=== PATIENT | male | born 1930 | race Caucasian/White ===

== ENCOUNTER 2018-08-15 15:54 | Inpatient (IN) | payer OTHER ==
[2018-08-15] MEDS ORDERED: ACETAMINOPHEN 1000 MG/100 ML VIAL (NON FORMULARY) IVPB ONE (16:35)
[2018-08-15] MEDS ORDERED: SODIUM CHLORIDE 1,000 ML IV STA (16:35)
[2018-08-15] MEDS ORDERED: ACETAMINOPHEN INJECTION 100 ML IVPB ONE (16:42)
[2018-08-15] MEDS ORDERED: ONDANSETRON 4 MG/2 ML VIAL IVPUSH ONE (16:44)
--- NOTE | 2018-08-15 16:57 | PDOC ---
Attending Attestation - [facility] HPI: 08/15/18 18:08 The patient is an 87-year-old male with a past medical history significant for HTN, DM (Type 2), GERD, BPH, CAD, s/p left lung resection presents to the emergency department with generalized weakness and abdominal pain. Per granddaughters at the bedside, the patients been having the symptoms for the past 2-3 days, that worsened today. The patient was seen at the doctors office , where the patient became diaphoretic and was sent to the ER for evaluation. The patient has associated symptoms of nausea. The family reports for the past 2 -3 days, the patients been not taking his stool softeners. The patients been on pain medication for the past 2 days secondary to back pain. Denies fever, chills, chest pain shortness of breath. Denies dysuria, hematuria, diarrhea. Allergies: NKA Social history: No tobacco or recreational drug use reported. Occasional alcohol use reported. Surgical history: Right lung resection. PCP: Nick Plascencia MD - Physicial Exam PE: 08/15/18 17:29 GENERAL: The patient is in no acute distress. Awake, alert, and oriented. HEAD: Normal with no signs of trauma. EYES: PERRLA, EOMI, sclera anicteric, conjunctiva clear. ENT: Ears normal, nares patent, oropharynx clear without exudates. Moist mucous membranes. NECK: Normal range of motion, supple without lymphadenopathy, JVD, or masses. LUNGS: Breath sounds equal, clear to auscultation bilaterally. No wheezes, and no crackles. HEART: +Tachycardia, no murmur. Regular rate and rhythm, normal S1 and S2 without murmur, rub or gallop. ABDOMEN: +Upper and epigastric tenderness. Soft, normoactive bowel sounds. No guarding, no rebound. No masses palpable. EXTREMITIES: Normal range of motion, no edema. No clubbing or cyanosis. No erythema, or tenderness. NEUROLOGICAL: Patient is a answering all questions. Cranial nerves II through XII grossly intact. Normal speech. No focal neurological deficits. MUSCULOSKELETAL: Back non-tender to palpation, no CVA tenderness SKIN: Warm, Dry, normal turgor, no rashes or lesions noted. - Medical Decision Making 08/15/18 17:30 Documentation prepared by Lyssa Granger, acting as certified medical transcriptionist for Marietta Lucero MD. <Lyssa Granger - Last Filed: 08/15/18 18:09> - Resident Resident Name: KielgrabielPorter - ED Attending Attestation I have performed the following: I have examined & evaluated the patient, The case was reviewed & discussed with the resident, I agree w/resident's findings & plan, Exceptions are as noted - HPI HPI: - Physicial Exam PE: - Medical Decision Making 08/15/18 16:40 Selected Entries 08/15/18 15:55 Temperature 99.9 F H Pulse Rate 123 H Respiratory 24 H Rate Blood Pressure 100/64 O2 Sat by Pulse 98 Oximetry (%) 08/15/18 16:41 EKG: Sinus tachycardia rate of 124 bpm, LAD, no ST elevation, prominent T waves , poor R wave progression 08/15/18 17:22 Laboratory Tests 08/15/18 17:00 WBC 9.6 Hgb 12.7 Hct 39.1 Plt Count 210 D Neutrophils % 67.9 Lymphocytes % 19.2 08/15/18 17:59 08/15/18 18:00 Laboratory Tests 08/15/18 08/15/18 16:34 17:00 Sodium 138 Potassium 4.4 Chloride 103 Carbon Dioxide 25 BUN 23 H Creatinine 0.8 Random Glucose 77 Total Bilirubin 0.7 AST 41 H ALT 19 Creatine Kinase 70 CK-MB (CK-2) 1.5 Troponin I < 0.02 08/15/18 18:12 Laboratory Tests 08/15/18 16:50 Lactic Acid 1.6 08/15/18 19:25 Laboratory Tests 08/15/18 16:50 Total Amylase 56 Lipase 154 08/15/18 19:48 Laboratory Tests 08/15/18 19:15 Urine Ketones Negative Urine Blood Negative Urine Nitrite Negative Ur Leukocyte Esterase Negative CT findings reviewed Will admit to hospitalist service <Marietta Lucero - Last Filed: 08/15/18 19:49>
[2018-08-15 17:04] LABS: BASO % 0.7 % (0-2.0); HEMATOCRIT 39.1 % (35.4-49); HEMOGLOBIN 12.7 GM/dL (11.7-16.9); LYMPH % 19.2 % (8-40); MCH 25.8 pg (25.7-33.7); MCHC 32.4 g/dl (32.0-35.9); MEAN CELL VOLUME 79.5 fl (80-96); MEAN PLT VOLUME 9.3 fl (7.5-11.1); MONO % 10.2 % (3.8-10.2); NEUT % 67.9 % (42.8-82.8); PLATELET COUNT 210 K/MM3 (134-434); RBC 4.91 M/mm3 (4.00-5.60); RDW 18.8 % (11.9-15.9); WHITE BLOOD COUNT 9.6 K/mm3 (4.0-10.0)
[2018-08-15] MEDS ORDERED: ONDANSETRON 4 MG/2 ML VIAL ONE (17:07)
[2018-08-15 17:26] LABS: VENOUS PC02 49.1 mmHg (38-52); VENOUS PH 7.36 (7.32-7.42); VENOUS PO2 38.4 mmHg (28-48)
--- NOTE | 2018-08-15 17:45 | PDOC ---
History of Present Illness - General Chief Complaint: Weakness Stated Complaint: SICK Time Seen by Provider: 08/15/18 16:34 - History of Present Illness Initial Comments: The patient is a 87M w/ a history of HTN, T2DM, GERD, BPH, and back pain who presents for evaluation of 3d of generalized, cramping/bloating abdominal pain that radiates to his right flank and some to his left flank. He endorses associated nausea. He also reports that while he was in a waiting room earlier he began to feel not well as well as diaphoretic. He denies diarrhea, dysuria, hematuria. Denies fevers/chills, recent illness, chest pain, SOB, or changes in sensation. 08/15/18 17:39 Past History - Past Medical History Allergies/Adverse Reactions: Allergies Allergy/AdvReac Type Severity Reaction Status Date / Time No Known Allergies Allergy Verified 08/15/18 16:25 Home Medications: Ambulatory Orders Aspirin [ASA -] 81 mg PO DAILY 04/01/16 Celecoxib [CeleBREX -] 200 mg PO DAILY PRN 04/01/16 Insulin Glargine,Hum.rec.anlog [Lantus Solostar PEN -] 35 units SQ HS 04/01/16 Metoprolol Succinate [Toprol Xl] 50 mg PO DAILY 04/01/16 Rosuvastatin Calcium [Crestor] 20 mg PO HS 04/01/16 Tamsulosin HCl [Flomax -] 0.4 mg PO BID 04/01/16 Azilsartan Medoxomil [Edarbi] 40 mg PO DAILY 04/02/16 Insulin (LOG) Aspart [NovoLOG -] 10 units SQ TID 04/02/16 Insulin Lispro Protamin/Lispro [Humalog Mix 50-50 Kwikpen] 35 unit SQ AC Ciprofloxacin [Cipro (Restricted To Id)] 500 mg PO Q12H #36 tablet 04/04/16 Hypromellose 0.5% Opth Soln [Artificial Tears] 1 drop OU Q12H PRN #0 drops 04/04 Lactobacillus Acidophilus [Bacid -] 1 each PO DAILY #30 capsule 04/04/16 Miscellaneous Drug Not In Syst [Outpatient Lab Test] 1 each ASDIR #1 misc 11/15 Timolol 0.5% [Timoptic 0.5%] 1 drop OU DAILY drops 04/04/16 Cardiac Disorders: Yes (CAD) CVA: No COPD: No CHF: No Dementia: No Diabetes: Yes GI Disorders: No Disorders: Yes (BPH) HTN: Yes Hypercholesterolemia: Yes Liver Disease: No Seizures: No Thyroid Disease: No - Surgical History Lung Surgery: Yes (S/P LT LUNG RESECTION) - Suicide/Smoking/Psychosocial Hx Smoking History: Never smoked Have you smoked in the past 12 months: No Information on smoking cessation initiated: No Hx Alcohol Use: No Drug/Substance Use Hx: No Substance Use Type: None Review of Systems - Review of Systems Able to Perform ROS?: Yes Comments:: GENERAL/CONSTITUTIONAL: No fever or chills. No weakness HEAD, EYES, EARS, NOSE AND THROAT: No change in vision. No ear pain or discharge. No sore throat CARDIOVASCULAR: No chest pain or shortness of breath RESPIRATORY: Denies cough, hemoptysis GASTROINTESTINAL: per HPI GENITOURINARY: No dysuria, frequency, or change in urination MUSCULOSKELETAL: No joint or muscle swelling or pain SKIN: No rash NEUROLOGIC: No headache, vertigo, loss of consciousness, or change in strength/ sensation ENDOCRINE: No increased thirst. No abnormal weight change HEMATOLOGIC/LYMPHATIC: No anemia, easy bleeding, or history of blood clots ALLERGIC/IMMUNOLOGIC: No hives or skin allergy 08/15/18 17:39 Is the patient limited [place]ian proficient: No *Physical Exam - Vital Signs Last Vital Signs Temp Pulse Resp BP Pulse Ox 99.9 F H 123 H 24 H 100/64 98 08/15/18 15:55 08/15/18 15:55 08/15/18 15:55 08/15/18 15:55 08/15/18 15:55 - Physical Exam Comments: GENERAL: Awake, alert, and fully oriented, in no acute distress HEAD: No signs of trauma, normocephalic, atraumatic EYES: PERRLA, EOMI, sclera anicteric, conjunctiva clear ENT: Hearing grossly normal, nares patent, oropharynx clear without exudates. Moist mucosa LUNGS: No distress, speaks full sentences, clear to auscultation bilaterally HEART: Tachycardia with regular rhythm, normal S1 and S2, no murmurs appreciated , peripheral pulses normal and equal bilaterally ABDOMEN: Soft, generalized TTP with more focalized TTP in the epigatrium and LUQ ; no rebound or guarding; not distended; normoactive bowel sounds; well healed TURP incision EXTREMITIES : Normal inspection, Normal range of motion, no edema. No clubbing or cyanosis NEUROLOGICAL: Cranial nerves II through XII grossly intact. Normal speech, no focal sensorimotor deficits SKIN: Warm, mildly diaphoretic, no rashes/cellulitis or lesions noted 08/15/18 17:39 Moderate Sedation - Procedure Monitoring Vital Signs: Procedure Monitoring Vital Signs Temperature 99.9 F H 08/15/18 15:55 Pulse Rate 123 H 08/15/18 15:55 Respiratory Rate 24 H 08/15/18 15:55 Blood Pressure 100/64 08/15/18 15:55 O2 Sat by Pulse Oximetry (%) 98 08/15/18 15:55 ED Treatment Course - LABORATORY CBC & Chemistry Diagram: 08/16/18 07:00 08/16/18 07:00 - ADDITIONAL ORDERS Additional order review: Laboratory Results 08/15/18 08/15/18 08/15/18 17:00 17:00 16:50 PT with INR Cancelled INR Cancelled PTT (Actin FS) Cancelled VBG pH 7.36 POC VBG pCO2 49.1 D POC VBG pO2 38.4 D Mixed VBG HCO3 26.7 H POC Glucometer Troponin I < 0.02 08/15/18 16:20 PT with INR INR PTT (Actin FS) VBG pH POC VBG pCO2 POC VBG pO2 Mixed VBG HCO3 POC Glucometer 105.12591 Troponin I 08/15/18 08/15/18 17:00 16:20 RBC 4.91 MCV 79.5 L MCHC 32.4 RDW 18.8 H MPV 9.3 Neutrophils % 67.9 Lymphocytes % 19.2 Monocytes % 10.2 Eosinophils % 2.0 Basophils % 0.7 POC Glucometer 105.55798 - RADIOLOGY Radiology Studies Ordered: Category Date Time Status ABDOMEN & PELVIS CT WITH CONTR [CT] Stat CT Scan 08/15/18 16:45 Ordered - Medications Given in the ED: ED Medications Discontinued Medications Generic Name Dose Route Start Last Admin Trade Name Freq PRN Reason Stop Dose Admin Acetaminophen 1,000 mg 08/15/18 16:35 08/15/18 17:02 Ofirmev Injection - IVPB 08/15/18 16:36 1,000 mg ONCE ONE Administration Ondansetron HCl 4 mg 08/15/18 16:44 08/15/18 17:17 Zofran Injection IVPUSH 08/15/18 16:45 4 mg ONCE ONE Administration Medical Decision Making - Medical Decision Making The patient is an 87M w/ a history of HTN and T2DM who presents for evaluation of 3d of abdominal pain, associated nausea, and diaphoresis Ddx: ACS, PNA, infection/sepsis, PUD, not likely but considered pancreatitis, biliary dz, vascular etiology ED Course CMP, CBC, coags, blood cultures, Trop I UA, UCx ECG CXR CT A&P Likely plan for admission 08/15/18 17:48 No leukocytosis No anemia Lytes wnl No JESSE LFTs wnl Trop I neg ECG w/o evidence of acute ischemia pending CT A&P Amylase and Lipase 08/15/18 18:[address] 08/15/18 18:36 CT A&P Impression In comparison to a CT study of 05/05/2016 interval development of findings are noted suggestive of 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 There is also possible contiguous involvement of the gastric body. Development of small right lower lobe pulmonary nodules is seen. I have transferred care of the patient to Dr. Pino and discussed the clinical presentation, work-up and ED course thus far. *DC/Admit/Observation/Transfer Diagnosis at time of Disposition: Abdominal pain Qualifiers: Abdominal location: unspecified location Qualified Code(s): R10.9 - Unspecified abdominal pain - Discharge Dispostion Condition at time of disposition: Good Decision to Admit order: Yes - Referrals - Patient Instructions - Post Discharge Activity
[2018-08-15 17:46] LABS: ALK PHOS 250 U/L (45-117); ANION GAP 10 MMOL/L (8-16); BILIRUBIN,TOTAL 0.7 mg/dL (0.2-1); BLOOD UREA NITROGEN 23 mg/dL (7-18); CALCIUM 8.6 mg/dL (8.5-10.1); CHLORIDE 103 mmol/L (98-107); CO2 25 mmol/L (21-32); CREATININE 0.8 mg/dL (0.55-1.3); GLUCOSE,RANDOM 77 mg/dL (74-106); POTASSIUM 4.4 mmol/L (3.5-5.1); SGOT/AST 41 U/L (15-37); SGPT/ALT 19 U/L (13-61); SODIUM 138 mmol/L (136-145); TOT PROT 7.1 g/dl (6.4-8.2)
[2018-08-15 18:00] LABS: INR 1.13 (0.83-1.09); PROTHROMBIN TIME (PATIENT) 13.3 SEC (9.7-13.0)
[2018-08-15 18:03] LABS: ACTIVATED PTT 31.1 SECONDS (25.2-36.5)
[2018-08-15 18:29] LABS: AMYLASE 56 U/L (25-115); LIPASE 154 U/L (73-393)
--- NOTE | 2018-08-15 19:25 | PDOC ---
*Physical Exam - Vital Signs Last Vital Signs Temp Pulse Resp BP Pulse Ox 99.9 F H 123 H 24 H 100/64 98 08/15/18 15:55 08/15/18 15:55 08/15/18 15:55 08/15/18 15:55 08/15/18 15:55 ED Treatment Course - LABORATORY CBC & Chemistry Diagram: 08/15/18 17:00 08/15/18 16:34 - ADDITIONAL ORDERS Additional order review: Laboratory Results 08/15/18 08/15/18 08/15/18 17:38 17:00 17:00 PT with INR 13.30 H INR 1.13 H PTT (Actin FS) 31.1 VBG pH POC VBG pCO2 POC VBG pO2 Mixed VBG HCO3 Sodium Potassium Chloride Carbon Dioxide Anion Gap BUN Creatinine Creat Clearance w eGFR POC Glucometer Random Glucose Lactic Acid Calcium Total Bilirubin AST ALT Alkaline Phosphatase Creatine Kinase CK-MB (CK-2) Troponin I < 0.02 Total Protein Albumin Total Amylase Lipase Blood Type A POSITIVE Antibody Screen Negative 08/15/18 08/15/18 08/15/18 17:00 16:50 16:50 PT with INR Cancelled INR Cancelled PTT (Actin FS) Cancelled VBG pH POC VBG pCO2 POC VBG pO2 Mixed VBG HCO3 Sodium Potassium Chloride Carbon Dioxide Anion Gap BUN Creatinine Creat Clearance w eGFR POC Glucometer Random Glucose Lactic Acid 1.6 Calcium Total Bilirubin AST ALT Alkaline Phosphatase Creatine Kinase CK-MB (CK-2) Troponin I Total Protein Albumin Total Amylase 56 Lipase 154 Blood Type Antibody Screen 08/15/18 08/15/18 08/15/18 16:50 16:34 16:20 PT with INR INR PTT (Actin FS) VBG pH 7.36 POC VBG pCO2 49.1 D POC VBG pO2 38.4 D Mixed VBG HCO3 26.7 H Sodium 138 Potassium 4.4 Chloride 103 Carbon Dioxide 25 Anion Gap 10 BUN 23 H Creatinine 0.8 Creat Clearance w eGFR > 60 POC Glucometer 105.33180 Random Glucose 77 Lactic Acid Calcium 8.6 Total Bilirubin 0.7 AST 41 H ALT 19 Alkaline Phosphatase 250 H Creatine Kinase 70 CK-MB (CK-2) 1.5 Troponin I Total Protein 7.1 Albumin 3.0 L Total Amylase Lipase Blood Type Antibody Screen 08/15/18 08/15/18 17:00 16:20 RBC 4.91 MCV 79.5 L MCHC 32.4 RDW 18.8 H MPV 9.3 Neutrophils % 67.9 Lymphocytes % 19.2 Monocytes % 10.2 Eosinophils % 2.0 Basophils % 0.7 POC Glucometer 105.75605 - Medications Given in the ED: ED Medications Discontinued Medications Generic Name Dose Route Start Last Admin Trade Name Willian PRN Reason Stop Dose Admin Acetaminophen 1,000 mg 08/15/18 16:35 08/15/18 17:02 Ofirmev Injection - IVPB 08/15/18 16:36 1,000 mg ONCE ONE Administration Ondansetron HCl 4 mg 08/15/18 16:44 08/15/18 17:17 Zofran Injection IVPUSH 08/15/18 16:45 4 mg ONCE ONE Administration Medical Decision Making - Medical Decision Making 08/15/18 19:[address] Landaverde. 87 year old male presented with diaphoresis and tachycardia. Patient reported generalized abdominal fullness for the past 3 days. Rule out ACS, repeat trop at 8pm Awaiting abdominal CT read Pending urinalysis Will admit to hospitalist. *DC/Admit/Observation/Transfer Diagnosis at time of Disposition: Abdominal pain Qualifiers: Abdominal location: unspecified location Qualified Code(s): R10.9 - Unspecified abdominal pain - Discharge Dispostion Condition at time of disposition: Good - Referrals Referrals: Nick Nur MD [Primary Care Provider] - - Patient Instructions - Post Discharge Activity
[2018-08-15 19:29] LABS: URINE APPEARANCE CLEAR; URINE BILIRUBIN NEGATIVE (<2.0 mg/dL); URINE COLOR YELLOW; URINE GLUCOSE (UA) NEGATIVE (NEGATIVE); URINE KETONE NEGATIVE (NEGATIVE); URINE LEUK ESTERASE NEGATIVE (NEGATIVE); URINE NITRITE NEGATIVE (NEGATIVE); URINE PROTEIN NEGATIVE (NEGATIVE); URINE UROBILINOGEN 4.0 E.U/dl mg/dL (0.2-1.0)
[2018-08-15] MEDS: SODIUM CHLORIDE 1,000 ML IV SCH (22:51)
--- NOTE | 2018-08-15 23:21 | HP ---
Admitting History and Physical - Admission Chief Complaint: Fever and chills History of Present Illness: this an 87 y/o male patient with hx of HTN, DL, pancreatic cancer and DM presented to the hospital with cold sweats, patient stated that he had no fever or chills, denied any chest pain or discomfort, no palpitations. History Source: Patient Limitations to Obtaining History: No Limitations - Past Medical History Heme/Onc: Yes: Other (pancreatic cancer with mets) - Smoking History Smoking history: Never smoked Have you smoked in the past 12 months: No - Alcohol/Substance Use Hx Alcohol Use: No Home Medications - Allergies Allergies/Adverse Reactions: Allergies Allergy/AdvReac Type Severity Reaction Status Date / Time No Known Allergies Allergy Verified 08/15/18 16:25 - Home Medications Home Medications: Ambulatory Orders Aspirin [ASA -] 81 mg PO DAILY 04/01/16 Celecoxib [CeleBREX -] 200 mg PO DAILY PRN 04/01/16 Insulin Glargine,Hum.rec.anlog [Lantus Solostar PEN -] 35 units SQ HS 04/01/16 Metoprolol Succinate [Toprol Xl] 50 mg PO DAILY 04/01/16 Rosuvastatin Calcium [Crestor] 20 mg PO HS 04/01/16 Tamsulosin HCl [Flomax -] 0.4 mg PO BID 04/01/16 Azilsartan Medoxomil [Edarbi] 40 mg PO DAILY 04/02/16 Insulin (LOG) Aspart [NovoLOG -] 10 units SQ TID 04/02/16 Insulin Lispro Protamin/Lispro [Humalog Mix 50-50 Kwikpen] 35 unit SQ AC Ciprofloxacin [Cipro (Restricted To Id)] 500 mg PO Q12H #36 tablet 04/04/16 Hypromellose 0.5% Opth Soln [Artificial Tears] 1 drop OU Q12H PRN #0 drops 04/04 Lactobacillus Acidophilus [Bacid -] 1 each PO DAILY #30 capsule 04/04/16 Miscellaneous Drug Not In Syst [Outpatient Lab Test] 1 each ASDIR #1 misc 11/15 Timolol 0.5% [Timoptic 0.5%] 1 drop OU DAILY drops 04/04/16 Review of Systems - Review of Systems Constitutional: reports: Diaphoresis, Loss of Appetite, Unintentional Wgt. Loss , Weakness Eyes: reports: No Symptoms HENT: reports: No Symptoms Neck: reports: No Symptoms Cardiovascular: reports: No Symptoms Respiratory: reports: No Symptoms Gastrointestinal: reports: No Symptoms Genitourinary: reports: Burning, Dysuria, Frequency Musculoskeletal: reports: No Symptoms Integumentary: reports: No Symptoms Physical Examination Vital Signs: Vital Signs Temperature 98.9 F 08/15/18 22:12 Pulse Rate 108 H 08/15/18 22:12 Respiratory Rate 18 08/15/18 22:12 Blood Pressure 104/55 L 08/15/18 22:12 O2 Sat by Pulse Oximetry (%) 96 08/15/18 22:12 Constitutional: Yes: Well Nourished, No Distress, Diaphoresis Eyes: Yes: WNL HENT: Yes: WNL Neck: Yes: WNL, Supple, Trachea Midline Cardiovascular: Yes: WNL, Regular Rate and Rhythm, S1, S2 Respiratory: Yes: WNL, Regular, CTA Bilaterally Gastrointestinal: Yes: WNL, Normal Bowel Sounds, Soft ...Rectal Exam: Yes: Deferred Musculoskeletal: Yes: WNL Labs: CBC, BMP 08/15/18 17:00 08/15/18 16:34 Imaging - Results Chest X-ray: Report Reviewed, Image Reviewed Cat Scan: Report Reviewed, Image Reviewed Problem List - Problems (1) BPH (benign prostatic hypertrophy) with urinary retention Assessment/Plan: c/w flomax Code(s): N40.1 - BENIGN PROSTATIC HYPERPLASIA WITH LOWER URINARY TRACT SYMP; R33.8 - OTHER RETENTION OF URINE (2) DM2 (diabetes mellitus, type 2) Assessment/Plan: c/w glargine c/w short acting insulin Code(s): E11.9 - TYPE 2 DIABETES MELLITUS WITHOUT COMPLICATIONS Qualifiers: 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
[2018-08-16] MEDS: INSULIN SLIDING SCALE (NOVOLOG) 1 VIAL SQ SCH ×4 (06:40→22:31)
[2018-08-16 07:47] LABS: BASO % 0.6 % (0-2.0); EOS % 2.4 % (0-4.5); HEMATOCRIT 35.6 % (35.4-49); HEMOGLOBIN 10.9 GM/dL (11.7-16.9); MCH 24.6 pg (25.7-33.7); MCHC 30.5 g/dl (32.0-35.9); MEAN CELL VOLUME 80.6 fl (80-96); MEAN PLT VOLUME 9.2 fl (7.5-11.1); MONO % 9.6 % (3.8-10.2); NEUT % 68.4 % (42.8-82.8); PLATELET COUNT 187 K/MM3 (134-434); RBC 4.41 M/mm3 (4.00-5.60); RDW 18.8 % (11.9-15.9); WHITE BLOOD COUNT 8.9 K/mm3 (4.0-10.0)
[2018-08-16] MEDS: TAMSULOSIN HCL 0.4 MG CAP PO SCH ×2 (08:00→22:26)
[2018-08-16 08:20] LABS: ALBUMIN 2.4 g/dl (3.4-5.0); ALK PHOS 207 U/L (45-117); ANION GAP 8 MMOL/L (8-16); BILIRUBIN,TOTAL 0.7 mg/dL (0.2-1); BLOOD UREA NITROGEN 17 mg/dL (7-18); CALCIUM 7.9 mg/dL (8.5-10.1); CHLORIDE 102 mmol/L (98-107); CO2 27 mmol/L (21-32); CREATININE 0.7 mg/dL (0.55-1.3); GLUCOSE,RANDOM 124 mg/dL (74-106); PHOSPHOROUS 3.8 mg/dL (2.5-4.9); POTASSIUM 4.4 mmol/L (3.5-5.1); SGOT/AST 38 U/L (15-37); SGPT/ALT 15 U/L (13-61); SODIUM 137 mmol/L (136-145); TOT PROT 5.9 g/dl (6.4-8.2)
[2018-08-16] MEDS ORDERED: AZILSARTAN MEDOXOMIL 40 MG PO SCH (10:00)
[2018-08-16] MEDS ORDERED: ENOXAPARIN NA (PORCINE) 40 MG/0.4 ML DISP.SYRIN SQ SCH (10:00)
[2018-08-16] MEDS ORDERED: PT OWN MED DRAWER 7, Y5N ONE (10:43)
[2018-08-16] MEDS: ASPIRIN 81 MG CHEWABLE TABLETS PO SCH (11:29)
[2018-08-16] MEDS: TIMOLOL 0.5% OPHTHALMIC SOL 5 ML BOTTLE OU SCH (11:30)
[2018-08-16] MEDS: SODIUM CHLORIDE 1,000 ML IV SCH ×2 (12:33→22:45)
--- NOTE | 2018-08-16 14:50 | PN ---
Progress Note (short form) - Note Progress Note: 87 year old male with HTN, DM 2, BPH, presented with increasing fatigue, abdominal distension, epigastric fullness, palpitations and sweats. 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 Feeling slightly better but still complains of non-specific abdominal discomfort and early satiety. No fever/chills/nausea/vomiting. No weight loss. No melena/hematochezia. PHYSICAL EXAMINATION Afebrile, Hemodynamically stable. Last Vital Signs Temp Pulse Resp BP Pulse Ox 98 F 106 H 20 143/78 96 08/16/18 08:00 08/16/18 11:39 08/16/18 08:00 08/16/18 11:39 08/15/18 22:12 HEENT - Atraumatic, Normocephalic. No pharyngeal erythema/exudate Heart - S1, S2, RRR Lungs - clear to auscultation - no crackles or wheeze. Abdomen - mild distension - mild R and L lower quadrant tenderness. No guarding or rebound. Bowel Sounds normal. Extremities - no calf tenderness Neuro - AAO x 3. Tone/Power normal all 4 extremities. INVESTIGATIONS Laboratory Results - last 24 hr 08/15/18 08/15/18 08/15/18 16:20 16:34 16:50 WBC RBC Hgb Hct MCV MCH MCHC RDW Plt Count MPV Absolute Neuts (auto) Neutrophils % Lymphocytes % Monocytes % Eosinophils % Basophils % Nucleated RBC % PT with INR INR PTT (Actin FS) D-Dimer VBG pH 7.36 POC VBG pCO2 49.1 D POC VBG pO2 38.4 D Mixed VBG HCO3 26.7 H Sodium 138 Potassium 4.4 Chloride 103 Carbon Dioxide 25 Anion Gap 10 BUN 23 H Creatinine 0.8 Creat Clearance w eGFR > 60 POC Glucometer 105.63138 Random Glucose 77 Lactic Acid Calcium 8.6 Phosphorus Magnesium Total Bilirubin 0.7 AST 41 H ALT 19 Alkaline Phosphatase 250 H Creatine Kinase 70 CK-MB (CK-2) 1.5 Troponin I Total Protein 7.1 Albumin 3.0 L Total Amylase Lipase Urine Color Urine Appearance Urine pH Ur Specific [place] Urine Protein Urine Glucose (UA) Urine Ketones Urine Blood Urine Nitrite Urine Bilirubin Urine Urobilinogen Ur Leukocyte Esterase Blood Type Antibody Screen 12/14/18 12/14/18 12/14/18 16:50 16:50 17:00 WBC 9.6 RBC 4.91 Hgb 12.7 Hct 39.1 MCV 79.5 L MCH 25.8 MCHC 32.4 RDW 18.8 H Plt Count 210 D MPV 9.3 Absolute Neuts (auto) 6.5 Neutrophils % 67.9 Lymphocytes % 19.2 Monocytes % 10.2 Eosinophils % 2.0 Basophils % 0.7 Nucleated RBC % 0 PT with INR INR PTT (Actin FS) D-Dimer VBG pH POC VBG pCO2 POC VBG pO2 Mixed VBG HCO3 Sodium Potassium Chloride Carbon Dioxide Anion Gap BUN Creatinine Creat Clearance w eGFR POC Glucometer Random Glucose Lactic Acid 1.6 Calcium Phosphorus Magnesium Total Bilirubin AST ALT Alkaline Phosphatase Creatine Kinase CK-MB (CK-2) Troponin I Total Protein Albumin Total Amylase 56 Lipase 154 Urine Color Urine Appearance Urine pH Ur Specific [place] Urine Protein Urine Glucose (UA) Urine Ketones Urine Blood Urine Nitrite Urine Bilirubin Urine Urobilinogen Ur Leukocyte Esterase Blood Type Antibody Screen 08/15/18 08/15/18 08/15/18 17:00 17:00 17:00 WBC RBC Hgb Hct MCV MCH MCHC RDW Plt Count MPV Absolute Neuts (auto) Neutrophils % Lymphocytes % Monocytes % Eosinophils % Basophils % Nucleated RBC % PT with INR Cancelled INR Cancelled PTT (Actin FS) Cancelled D-Dimer VBG pH POC VBG pCO2 POC VBG pO2 Mixed VBG HCO3 Sodium Potassium Chloride Carbon Dioxide Anion Gap BUN Creatinine Creat Clearance w eGFR POC Glucometer Random Glucose Lactic Acid Calcium Phosphorus Magnesium Total Bilirubin AST ALT Alkaline Phosphatase Creatine Kinase CK-MB (CK-2) Troponin I < 0.02 Total Protein Albumin Total Amylase Lipase Urine Color Urine Appearance Urine pH Ur Specific [place] Urine Protein Urine Glucose (UA) Urine Ketones Urine Blood Urine Nitrite Urine Bilirubin Urine Urobilinogen Ur Leukocyte Esterase Blood Type A POSITIVE Antibody Screen Negative 08/15/18 08/15/18 08/15/18 17:38 17:38 19:15 WBC RBC Hgb Hct MCV MCH MCHC RDW Plt Count MPV Absolute Neuts (auto) Neutrophils % Lymphocytes % Monocytes % Eosinophils % Basophils % Nucleated RBC % PT with INR 13.30 H INR 1.13 H PTT (Actin FS) 31.1 D-Dimer 2681 H VBG pH POC VBG pCO2 POC VBG pO2 Mixed VBG HCO3 Sodium Potassium Chloride Carbon Dioxide Anion Gap BUN Creatinine Creat Clearance w eGFR POC Glucometer Random Glucose Lactic Acid Calcium Phosphorus Magnesium Total Bilirubin AST ALT Alkaline Phosphatase Creatine Kinase CK-MB (CK-2) Troponin I Total Protein Albumin Total Amylase Lipase Urine Color Yellow Urine Appearance Clear Urine pH 5.0 Ur Specific [place] 1.020 Urine Protein Negative Urine Glucose (UA) Negative Urine Ketones Negative Urine Blood Negative Urine Nitrite Negative Urine Bilirubin Negative Urine Urobilinogen 4.0 e.u/dl Ur Leukocyte Esterase Negative Blood Type Antibody Screen 08/15/18 08/16/18 08/16/18 22:02 07:00 07:00 WBC 8.9 RBC 4.41 Hgb 10.9 L Hct 35.6 MCV 80.6 MCH 24.6 L MCHC 30.5 L RDW 18.8 H Plt Count 187 MPV 9.2 Absolute Neuts (auto) 6.1 Neutrophils % 68.4 Lymphocytes % 19.0 Monocytes % 9.6 Eosinophils % 2.4 Basophils % 0.6 Nucleated RBC % 0 PT with INR INR PTT (Actin FS) D-Dimer VBG pH POC VBG pCO2 POC VBG pO2 Mixed VBG HCO3 Sodium 137 Potassium 4.4 Chloride 102 Carbon Dioxide 27 Anion Gap 8 BUN 17 Creatinine 0.7 Creat Clearance w eGFR > 60 POC Glucometer Random Glucose 124 H Lactic Acid Calcium 7.9 L Phosphorus 3.8 Magnesium 2.0 Total Bilirubin 0.7 AST 38 H ALT 15 Alkaline Phosphatase 207 H Creatine Kinase CK-MB (CK-2) Troponin I < 0.02 Total Protein 5.9 L Albumin 2.4 L Total Amylase Lipase Urine Color Urine Appearance Urine pH Ur Specific [place] Urine Protein Urine Glucose (UA) Urine Ketones Urine Blood Urine Nitrite Urine Bilirubin Urine Urobilinogen Ur Leukocyte Esterase Blood Type Antibody Screen CT A/P - Pancreatic Mass with likely Liver Mets. Pulmonary Nodules. Possible contiguous involvement of the gastric body. CXR - basal atelectasis Assessment/Plan 87 year old male with HTN, DM 2, BPH, presented with increasing fatigue, abdominal distension, epigastric fullness, palpitations and sweats. 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 1. Pancreatic Mass - likely Ca with mets to Liver No clear evidence of pancreatic or biliary obstruction on imaging/chemistry although there is some pancreatic duct dilatation on CT A/P. CEA, CA 19/9 pending. Will consult Hematology/Oncology and GI for recommendations regarding further work up including possible EGD/EUS/Bx. Patient is currently FULL CODE and wants full work up. Once a final tissue diagnosis has been made, he will reconsider treatment options and code status at that time. 2. HTN - Normally on Azilsartan and Metoprolol. Metoprolol continued. 3. DM 2 - Continue Glargine/Lispro SS. 4. Anemia - likely secondary to chronic disease/metastatic malignancy. No evidence of active bleeding. Stool occult blood requested. Will monitor H/H 5. HLD -continue Rosuvastatin. 6. BPH - Continue Tamsulosin DVT Px - Heparin SQ GI Px - Protonix Home Medications Medication Instructions Recorded Aspirin [ASA -] 81 mg PO DAILY 04/01/16 Celecoxib [CeleBREX -] 200 mg PO DAILY PRN 04/01/16 Insulin Glargine,Hum.rec.anlog 35 units SQ HS 04/01/16 [Lantus Solostar PEN -] Metoprolol Succinate [Toprol Xl] 50 mg PO DAILY 04/01/16 Rosuvastatin Calcium [Crestor] 20 mg PO HS 04/01/16 Tamsulosin HCl [Flomax -] 0.4 mg PO BID 04/01/16 Azilsartan Medoxomil [Edarbi] 40 mg PO DAILY 04/02/16 Insulin (LOG) Aspart [NovoLOG -] 10 units SQ TID 04/02/16 Insulin Lispro Protamin/Lispro 35 unit SQ AC 04/02/16 [Humalog Mix 50-50 Kwikpen] Ciprofloxacin [Cipro (Restricted 500 mg PO Q12H #36 tablet 04/04/16 To Id)] Hypromellose 0.5% Opth Soln 1 drop OU Q12H PRN #0 drops 04/04/16 [Artificial Tears] Lactobacillus Acidophilus [Bacid -] 1 each PO DAILY #30 capsule 04/04/16 Miscellaneous Drug Not In Syst 1 each ASDIR #1 misc 04/04/16 [Outpatient Lab Test] Timolol 0.5% [Timoptic 0.5%] 1 drop OU DAILY drops 04/04/16 Visit type - Emergency Visit Emergency Visit: Yes ED Registration Date: 08/15/18 Care time: The patient presented to the Emergency Department on the above date and was hospitalized for further evaluation of their emergent condition. - New Patient This patient is new to me today: Yes Date on this admission: 08/16/18 - Critical Care Critical Care patient: No - Discharge Referral Referred to [facility] No
[2018-08-16] MEDS ORDERED: DOCUSATE SODIUM 100 MG CAPSULE (FP) PO PRN (17:44)
[2018-08-16] MEDS ORDERED: POLYETHYLENE GLYCOL 3350 119 GM BTL PO PRN (17:45)
[2018-08-16] MEDS ORDERED: BISACODYL 10 MG SUPP.RECT PR PRN (17:46)
[2018-08-16] MEDS: HEPARIN NA (PORCINE) 5,000 UNITS/ML 1ML VIAL SQ SCH (22:26)
[2018-08-16] MEDS: ROSUVASTATIN CA 20 MG TABLET (FP) PO SCH (22:26)
[2018-08-16] MEDS: INSULIN (LEVEMIR) 100 UNITS/ML UNITS SQ SCH (22:30)
--- NOTE | 2018-08-16 23:28 | CON.GI ---
Consult - Alcohol/Substance Use Hx Alcohol Use: No - Smoking History Smoking history: Never smoked Have you smoked in the past 12 months: No Home Medications - Allergies Allergies/Adverse Reactions: Allergies Allergy/AdvReac Type Severity Reaction Status Date / Time No Known Allergies Allergy Verified 08/15/18 16:25 - Home Medications Home Medications: Ambulatory Orders Aspirin [ASA -] 81 mg PO DAILY 04/01/16 Celecoxib [CeleBREX -] 200 mg PO DAILY PRN 04/01/16 Insulin Glargine,Hum.rec.anlog [Lantus Solostar PEN -] 35 units SQ HS 04/01/16 Metoprolol Succinate [Toprol Xl] 50 mg PO DAILY 04/01/16 Rosuvastatin Calcium [Crestor] 20 mg PO HS 04/01/16 Tamsulosin HCl [Flomax -] 0.4 mg PO BID 04/01/16 Azilsartan Medoxomil [Edarbi] 40 mg PO DAILY 04/02/16 Insulin (LOG) Aspart [NovoLOG -] 10 units SQ TID 04/02/16 Insulin Lispro Protamin/Lispro [Humalog Mix 50-50 Kwikpen] 35 unit SQ AC Ciprofloxacin [Cipro (Restricted To Id)] 500 mg PO Q12H #36 tablet 04/04/16 Hypromellose 0.5% Opth Soln [Artificial Tears] 1 drop OU Q12H PRN #0 drops 04/04 Lactobacillus Acidophilus [Bacid -] 1 each PO DAILY #30 capsule 04/04/16 Miscellaneous Drug Not In Syst [Outpatient Lab Test] 1 each ASDIR #1 misc 11/15 Timolol 0.5% [Timoptic 0.5%] 1 drop OU DAILY drops 04/04/16 Physical Exam-GI Vital Signs: Vital Signs Temperature 97.0 F L 08/16/18 18:00 Pulse Rate 98 H 08/16/18 18:00 Respiratory Rate 20 08/16/18 18:00 Blood Pressure 149/82 08/16/18 18:00 O2 Sat by Pulse Oximetry (%) 96 08/16/18 09:00 Labs: CBC, BMP 08/16/18 07:00 08/16/18 07:00 INR, PTT INR 1.13 (0.83-1.09) H 08/15/18 17:38
--- NOTE | 2018-08-16 23:33 | CON.GI ---
Consult Consult Specialty:: GI Referred by:: Hospitalist Service Reason for Consultation:: Pancreatic cancer and metastatic liver disease - History of Present Illness Chief Complaint: abdominal pain, back pain History of Present Illness: 87M admitted for evaluation of abdominal pain and lower back pain. He also describes having constipation for 5 days. he believes that he had a colonoscopy with Dr. whipple but does not recall when. CT scan on admission revealed findings consistent with primary pancreatic ca involving liver as well as gastric body. He denies vomiting. He does describe "belching and gas". - History Source History Provided By: Patient, Medical Record - Past Medical History Cardio/Vascular: Yes: CAD, HTN Renal/: Yes: BPH Endocrine: Yes: Diabetes Mellitus (DM II) - Past Surgical History Additional Surgical History: Resection of right lung mass - Alcohol/Substance Use Hx Alcohol Use: No History of Substance Use: reports: None - Smoking History Smoking history: Never smoked Have you smoked in the past 12 months: No - Social History Usual Living Arrangement: Other (Lives with family) ADL: Independent History of Recent Travel: No Home Medications - Allergies Allergies/Adverse Reactions: Allergies Allergy/AdvReac Type Severity Reaction Status Date / Time No Known Allergies Allergy Verified 08/15/18 16:25 - Home Medications Home Medications: Ambulatory Orders Aspirin [ASA -] 81 mg PO DAILY 04/01/16 Celecoxib [CeleBREX -] 200 mg PO DAILY PRN 04/01/16 Insulin Glargine,Hum.rec.anlog [Lantus Solostar PEN -] 35 units SQ HS 04/01/16 Metoprolol Succinate [Toprol Xl] 50 mg PO DAILY 04/01/16 Rosuvastatin Calcium [Crestor] 20 mg PO HS 04/01/16 Tamsulosin HCl [Flomax -] 0.4 mg PO BID 04/01/16 Azilsartan Medoxomil [Edarbi] 40 mg PO DAILY 04/02/16 Insulin (LOG) Aspart [NovoLOG -] 10 units SQ TID 04/02/16 Insulin Lispro Protamin/Lispro [Humalog Mix 50-50 Kwikpen] 35 unit SQ AC Ciprofloxacin [Cipro (Restricted To Id)] 500 mg PO Q12H #36 tablet 04/04/16 Hypromellose 0.5% Opth Soln [Artificial Tears] 1 drop OU Q12H PRN #0 drops 04/04 Lactobacillus Acidophilus [Bacid -] 1 each PO DAILY #30 capsule 04/04/16 Miscellaneous Drug Not In Syst [Outpatient Lab Test] 1 each ASDIR #1 misc 11/15 Timolol 0.5% [Timoptic 0.5%] 1 drop OU DAILY drops 04/04/16 Family Disease History - Family Disease History Other Family History: No history of colon cancer, pancreatic cancer Review of Systems - Review of Systems Constitutional: denies: Chills, Loss of Appetite Gastrointestinal: reports: Abdominal Pain, Constipation. denies: Bloating, Diarrhea, Melena, Nausea, Rectal Bleeding, Vomiting Physical Exam-GI Vital Signs: Vital Signs Temperature 97.0 F L 08/16/18 18:00 Pulse Rate 98 H 08/16/18 18:00 Respiratory Rate 20 08/16/18 18:00 Blood Pressure 149/82 08/16/18 18:00 O2 Sat by Pulse Oximetry (%) 96 08/16/18 09:00 Constitutional: Yes: Calm Eyes: No: Sclera Icterus Cardiovascular: Yes: Regular Rate and Rhythm Respiratory: No: CTA Bilaterally Gastrointestinal Inspection: No: Distention, Scars ...Auscultate: Yes: Normoactive Bowel Sounds ...Palpate: No: Hepatomegaly, Splenomegaly, Tenderness ...Percussion: No: Tympanitic ...Rectal Exam: Yes: Other (No external lesions, no masses, 2+ prostate, stool guaiac negative) Edema: No (No LE edema) Neurological: Yes: Alert Labs: CBC, BMP 08/16/18 07:00 08/16/18 07:00 INR, PTT INR 1.13 (0.83-1.09) H 08/15/18 17:38 Hepatic Panel Total Bilirubin 0.7 mg/dL (0.2-1) 08/16/18 07:00 AST 38 U/L (15-37) H 08/16/18 07:00 ALT 15 U/L (13-61) 08/16/18 07:00 Alkaline Phosphatase 207 U/L (45-117) H 08/16/18 07:00 Albumin 2.4 g/dl (3.4-5.0) L 08/16/18 07:00 Imaging - Results Cat Scan: Report Reviewed, Image Reviewed Problem List - Problems (1) Metastatic cancer Assessment/Plan: Suspected pancreatic cancer primary with mets to liver and local extension Advise: Onc evaluation Will likely need liver biopsy. would stop asa in setting of possible biopsy Code(s): C79.9 - SECONDARY MALIGNANT NEOPLASM OF UNSPECIFIED SITE
[2018-08-17] MEDS: INSULIN SLIDING SCALE (NOVOLOG) 1 VIAL SQ SCH ×4 (06:08→22:22)
[2018-08-17] MEDS: HEPARIN NA (PORCINE) 5,000 UNITS/ML 1ML VIAL SQ SCH ×3 (06:08→22:22)
[2018-08-17 06:52] LABS: HEMATOCRIT 36.3 % (35.4-49); MCH 24.3 pg (25.7-33.7); MCHC 30.4 g/dl (32.0-35.9); PLATELET COUNT 197 K/MM3 (134-434); RBC 4.53 M/mm3 (4.00-5.60); RDW 18.6 % (11.9-15.9); WHITE BLOOD COUNT 8.5 K/mm3 (4.0-10.0)
[2018-08-17] MEDS ORDERED: PT OWN MED DRAWER 7, Y5N ONE ×2 (09:13→12:14)
[2018-08-17] MEDS: PANTOPRAZOLE 40 MG TABLET (FP) PO SCH (09:29)
[2018-08-17] MEDS: TAMSULOSIN HCL 0.4 MG CAP PO SCH ×2 (09:29→22:22)
[2018-08-17] MEDS: POLYETHYLENE GLYCOL 3350 119 GM BTL PO SCH (09:30)
[2018-08-17] MEDS: TIMOLOL 0.5% OPHTHALMIC SOL 5 ML BOTTLE OU SCH (10:16)
--- NOTE | 2018-08-17 12:27 | EKG ---
Test Reason : Blood Pressure : / mmHG Vent. 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
--- NOTE | 2018-08-17 13:04 | CONSULT ---
Consult Consult Specialty:: Oncology Referred by:: Medicine Reason for Consultation:: Newly diagnosed pancreatic mass, with liver lesions, suggestive of pancreatic carcinoma - History of Present Illness Chief Complaint: Referred to ER Saturday from PCPs office following episode of diaphoresis, noted on CT andomen to have pancreatic and liver lesions History of Present Illness: On questioning reports some loss of weight past several months. Also reports back pain 1 month - underwent MRI a few days ago that apparently noted a spinal lesion (as per family) - report not available for review. Otherwise non-specific GI symptoms - bloating, intermittent abdominal pain, ' gasiness'. Currently comfortable. - History Source History Provided By: Patient, Family Member Limitations to Obtaining History: No Limitations - Past Medical History Cardio/Vascular: Yes: CAD, HTN Renal/: Yes: BPH Endocrine: Yes: Diabetes Mellitus (DM II) - Past Surgical History Additional Surgical History: Resection of right lung mass - Alcohol/Substance Use Hx Alcohol Use: No History of Substance Use: reports: None - Smoking History Smoking history: Never smoked Have you smoked in the past 12 months: No - Social History Usual Living Arrangement: Other (Lives with family) ADL: Independent History of Recent Travel: No Home Medications - Allergies Allergies/Adverse Reactions: Allergies Allergy/AdvReac Type Severity Reaction Status Date / Time No Known Allergies Allergy Verified 08/15/18 16:25 - Home Medications Home Medications: Ambulatory Orders Aspirin [ASA -] 81 mg PO DAILY 04/01/16 Celecoxib [CeleBREX -] 200 mg PO DAILY PRN 04/01/16 Insulin Glargine,Hum.rec.anlog [Lantus Solostar PEN -] 35 units SQ HS 04/01/16 Metoprolol Succinate [Toprol Xl] 50 mg PO DAILY 04/01/16 Rosuvastatin Calcium [Crestor] 20 mg PO HS 04/01/16 Tamsulosin HCl [Flomax -] 0.4 mg PO BID 04/01/16 Azilsartan Medoxomil [Edarbi] 40 mg PO DAILY 04/02/16 Insulin (LOG) Aspart [NovoLOG -] 10 units SQ TID 04/02/16 Insulin Lispro Protamin/Lispro [Humalog Mix 50-50 Kwikpen] 35 unit SQ AC Ciprofloxacin [Cipro (Restricted To Id)] 500 mg PO Q12H #36 tablet 04/04/16 Hypromellose 0.5% Opth Soln [Artificial Tears] 1 drop OU Q12H PRN #0 drops 04/04 Lactobacillus Acidophilus [Bacid -] 1 each PO DAILY #30 capsule 04/04/16 Miscellaneous Drug Not In Syst [Outpatient Lab Test] 1 each ASDIR #1 misc 11/15 Timolol 0.5% [Timoptic 0.5%] 1 drop OU DAILY drops 04/04/16 Family Disease History - Family Disease History Other Family History: No history of colon cancer, pancreatic cancer Review of Systems - Review of Systems Constitutional: reports: Diaphoresis, Unintentional Wgt. Loss Eyes: reports: No Symptoms HENT: reports: No Symptoms, Difficult Swallowing Cardiovascular: denies: Chest Pain, Edema, Shortness of Breath Respiratory: denies: Cough, SOB Gastrointestinal: reports: Abdominal Pain, Bloating. denies: Vomiting Musculoskeletal: reports: Back Pain Neurological: reports: No Symptoms Physical Exam Vital Signs: Vital Signs Temperature 97.8 F 08/17/18 09:28 Pulse Rate 103 H 08/17/18 09:28 Respiratory Rate 19 08/17/18 09:28 Blood Pressure 140/56 L 08/17/18 09:28 O2 Sat by Pulse Oximetry (%) 96 08/16/18 21:00 Constitutional: Yes: Well Nourished, Calm Eyes: Yes: WNL HENT: Yes: WNL Neck: Yes: Supple. No: Lymphadenopathy Cardiovascular: Yes: WNL Respiratory: Yes: CTA Bilaterally Gastrointestinal: Yes: Normal Bowel Sounds. No: Ascites, Distention, Hepatomegaly, Palpable Mass, Splenomegaly, Tenderness, Rebound Musculoskeletal: No: Joint Swelling Integumentary: No: Rash Neurological: Yes: Alert, Oriented, Cran Nerves II-XII Intact. No: Weakness ...Motor Strength: WNL Labs: CBC, BMP 08/17/18 06:00 08/16/18 07:00 Imaging - Results Cat Scan: Report Reviewed Assessment/Plan Newly diagnosed metastatic pancreatic neoplasm, likely adenocarcinoma, with liver metastases. Possible spinal mets also - awaiting outside MRI report. In light of age unlikely that patient would benefit from aggressive chemotherapy , but certainly may be beneficial palliative interventions. Discussed with patient's family the utility of confirming diagnosis with biopsy. On the balance , in light of the ease with which tissue can be obtained - very accessible large liver lesion noted - believe that tissue biopsy should be pursued, which may reveal pathology other than expected adenocarcinoma, possible more amenable to treatment. Tumor markers pending. Need to review MRI spine - to determine if a candidate for palliative RTX. Review of CT spine reveals no major anatomical aberration/fracture etc. GI following - no clear evidence of gastric outlet obstruction but not entirely ruled out - needs to be monitored clinically.
[2018-08-17] MEDS: ASPIRIN 81 MG CHEWABLE TABLETS PO SCH (13:53)
--- NOTE | 2018-08-17 14:15 | PN ---
Physical Exam: SUBJECTIVE: Patient seen and examined at bed side , no acute events over night denies any fever, chills, N/V/D/C, complain of frequent gases and purp and early satiety OBJECTIVE: Vital Signs Period Temp Pulse Resp BP Sys/Fay Pulse Ox Last 24 Hr 97.0 F-97.8 F 96-103 19-20 139-152/56-82 96-96 GENERAL: AAOx3 in NAD HEAD: NC/AT EYES: EOMI, Conjunctiva clear, sclera anicteric ENT: moist mucous membrane NECK: Supple, no JVD LUNGS: CTA B/L, no crackles no wheezing no accessory muscle use. HEART: RRR, NSR, normal s1, s2, murmur no M/R/G ABDOMEN:Obese Soft, ND, mid epigatric tenderness and lUQ tenderness , [place] nehative , +BS 4 Q, no CVA Tenderness LOWER EXTREMITIES: no edema, +2DP pulse, NEUROLOGICAL: No focal deficit. Normal speech. gait not observed. PSYCHIATRIC: Cooperative. Good eye contact. Appropriate mood and affect. SKIN: Warm, dry, Laboratory Results - last 24 hr 08/15/18 08/15/18 08/16/18 22:02 22:02 22:28 WBC RBC Hgb Hct MCV MCH MCHC RDW Plt Count MPV POC Glucometer 199 Carcinoembryonic Ag 1.9 CA 19-9 Antigen 49977 H 08/17/18 08/17/18 08/17/18 05:31 06:00 12:12 WBC 8.5 RBC 4.53 Hgb 11.0 L Hct 36.3 MCV 80.0 MCH 24.3 L MCHC 30.4 L RDW 18.6 H Plt Count 197 MPV 9.0 POC Glucometer 184 250 Carcinoembryonic Ag CA 19-9 Antigen Active Medications Generic Name Dose Route Start Last Admin Trade Name Freq PRN Reason Stop Dose Admin Aspirin 81 mg 08/16/18 10:00 08/17/18 13:53 Asa - PO Not Given DAILY TJ Docusate Sodium 100 mg 08/16/18 17:44 08/17/18 09:29 Colace - PO 100 mg BID PRN Administration CONSTIPATION Heparin Sodium (Porcine) 5,000 unit 08/16/18 22:00 08/17/18 06:08 Heparin - SQ 5,000 unit TID TJ Administration Sodium Chloride 1,000 mls @ 75 mls/hr 08/15/18 22:45 08/16/18 22:45 Normal Saline - IV 75 mls/hr ASDIR TJ Administration Insulin Aspart 1 vial 08/16/18 07:00 08/17/18 12:16 Novolog Vial Sliding Scale - SQ 2 units ACHS TJ Administration Protocol Insulin Detemir 10 units 08/16/18 22:00 08/16/18 22:30 Levemir Vial SQ 10 units HS TJ Administration Metoprolol Succinate 50 mg 08/16/18 10:00 08/17/18 09:29 Toprol Xl - PO 50 mg DAILY TJ Administration Non-Formulary Medication 40 mg 08/16/18 10:00 Azilsartan Medoxomil [Edarbi] PO DAILY TJ Pantoprazole Sodium 40 mg 08/17/18 10:00 08/17/18 09:29 Protonix - PO 40 mg DAILY TJ Administration Polyethylene Glycol 17 gm 08/16/18 17:45 Miralax (For Daily Use) - PO DAILY PRN CONSTIPATION Polyethylene Glycol 17 gm 08/17/18 10:00 08/17/18 09:30 Miralax (For Daily Use) - PO 17 gm DAILY TJ Administration Rosuvastatin Calcium 20 mg 08/16/18 22:00 08/16/18 22:26 Crestor - PO 20 mg HS TJ Administration Tamsulosin HCl 0.4 mg 08/16/18 08:30 08/17/18 09:29 Flomax - PO 0.4 mg BID@0830,2200 TJ Administration Timolol Maleate 1 drop 08/16/18 10:00 08/17/18 10:16 Timoptic 0.5% OU 1 drop DAILY TJ Administration CBC, BMP 08/17/18 06:00 08/16/18 07:00 CT A/P - Pancreatic Mass with likely Liver Mets. Pulmonary Nodules. Possible contiguous involvement of the gastric body. CXR - basal atelectasis ASSESSMENT/PLAN: 87 year old male with HTN, DM 2, BPH, presented with increasing fatigue, abdominal distension, epigastric fullness, palpitations and sweats. 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 1. Pancreatic Mass - likely Ca with mets to Liver No clear evidence of pancreatic or biliary obstruction on imaging/chemistry although there is some pancreatic duct dilatation on CT A/P. CEA, CA 19/9 pending. Will consult Hematology/Oncology and GI for recommendations regarding further work up including possible EGD/EUS/Bx. Patient is currently FULL CODE and wants full work up. Once a final tissue diagnosis has been made, he will reconsider treatment options and code status at that time. 2. HTN - Normally on Azilsartan and Metoprolol. Metoprolol continued. 3. DM 2 - Continue Glargine/Lispro SS. 4. Anemia - likely secondary to chronic disease/metastatic malignancy. No evidence of active bleeding. Stool occult blood requested. Will monitor H/H 5. HLD -continue Rosuvastatin. 6. BPH - Continue Tamsulosin DVT Px - Heparin SQ GI Px - Protonix Visit type - Emergency Visit Emergency Visit: Yes ED Registration Date: 08/15/18 Care time: The patient presented to the Emergency Department on the above date and was hospitalized for further evaluation of their emergent condition. - New Patient This patient is new to me today: No - Critical Care Critical Care patient: No - Discharge Referral Referred to [facility] No
[2018-08-17] MEDS ORDERED: SIMETHICONE 80 MG TAB.CHEW (FP) PO PRN (14:16)
[2018-08-17] MEDS: LACTOBACILLUS ACIDOPHILUS 1 TABLET PO SCH (15:20)
--- NOTE | 2018-08-17 16:15 | PN ---
Teaching Attending Note Name of Resident: Kevin Bernardo ATTENDING PHYSICIAN STATEMENT I saw and evaluated the patient. I reviewed the resident's note and discussed the case with the resident. I agree with the resident's findings and plan as documented. SUBJECTIVE: Feeling brighter. Still complains of bloating and early satiety. No vomiting. Good appetite. Bowel Movement yesterday. No melena/hematochezia. Abdominal discomfort at acceptable limits. OBJECTIVE: Afebrile, hemodynamically stable. Last Vital Signs Temp Pulse Resp BP Pulse Ox 97.9 F 112 H 20 137/67 96 08/17/18 14:08 08/17/18 14:08 08/17/18 14:08 08/17/18 14:08 08/17/18 09:00 Neuro -AAO x 3. Tone/Power normal all 4 extremities. HEENT - Araumatic, Normocephalic. No pharyngeal erythema/exudate Heart - S1, S2, RRR Lungs - clear to auscultation Abdomen - mild tenderness LQs. Soft. Bowel Sounds normal. Extremities - no edema. No calf tenderness Laboratory Results - last 24 hr 08/15/18 08/15/18 08/16/18 22:02 22:02 22:28 WBC RBC Hgb Hct MCV MCH MCHC RDW Plt Count MPV POC Glucometer 199 Carcinoembryonic Ag 1.9 CA 19-9 Antigen 20623 H 08/17/18 08/17/18 08/17/18 05:31 06:00 12:12 WBC 8.5 RBC 4.53 Hgb 11.0 L Hct 36.3 MCV 80.0 MCH 24.3 L MCHC 30.4 L RDW 18.6 H Plt Count 197 MPV 9.0 POC Glucometer 184 250 Carcinoembryonic Ag CA 19-9 Antigen Current Medications Generic Name Dose Route Start Last Admin Trade Name Freq PRN Reason Stop Dose Admin Aspirin 81 mg 08/16/18 10:00 08/17/18 13:53 Asa - PO Not Given DAILY TJ Docusate Sodium 100 mg 08/16/18 17:44 08/17/18 09:29 Colace - PO 100 mg BID PRN Administration CONSTIPATION Heparin Sodium (Porcine) 5,000 unit 08/16/18 22:00 08/17/18 15:11 Heparin - SQ 5,000 unit TID TJ Administration Sodium Chloride 1,000 mls @ 75 mls/hr 08/15/18 22:45 08/16/18 22:45 Normal Saline - IV 75 mls/hr ASDIR TJ Administration Insulin Aspart 1 vial 08/16/18 07:00 08/17/18 12:16 Novolog Vial Sliding Scale - SQ 2 units ACHS TJ Administration Protocol Insulin Detemir 10 units 08/16/18 22:00 08/16/18 22:30 Levemir Vial SQ 10 units HS TJ Administration Lactobacillus Acidophilus 1 tab 08/17/18 14:30 08/17/18 15:20 Bacid - PO 1 tab DAILY TJ Administration Metoprolol Succinate 50 mg 08/16/18 10:00 08/17/18 09:29 Toprol Xl - PO 50 mg DAILY TJ Administration Non-Formulary Medication 40 mg 08/16/18 10:00 Azilsartan Medoxomil [Edarbi] PO DAILY TJ Pantoprazole Sodium 40 mg 08/17/18 10:00 08/17/18 09:29 Protonix - PO 40 mg DAILY TJ Administration Polyethylene Glycol 17 gm 08/16/18 17:45 Miralax (For Daily Use) - PO DAILY PRN CONSTIPATION Polyethylene Glycol 17 gm 08/17/18 10:00 08/17/18 09:30 Miralax (For Daily Use) - PO 17 gm DAILY TJ Administration Rosuvastatin Calcium 20 mg 08/16/18 22:00 08/16/18 22:26 Crestor - PO 20 mg HS TJ Administration Simethicone 80 mg 08/17/18 18:00 Mylicon - PO Q6HPO TJ Tamsulosin HCl 0.4 mg 08/16/18 08:30 08/17/18 09:29 Flomax - PO 0.4 mg BID@0830,2200 TJ Administration Timolol Maleate 1 drop 08/16/18 10:00 08/17/18 10:16 Timoptic 0.5% OU 1 drop DAILY TJ Administration ASSESSMENT AND PLAN: 87 year old male with HTN, DM 2, BPH, presented with increasing fatigue, abdominal distension, epigastric fullness, palpitations and sweats. 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 1. Pancreatic Mass - likely Ca with mets to Liver No clear evidence of pancreatic or biliary obstruction on imaging/chemistry although there is some pancreatic duct dilatation on CT A/P. CEA wnl, CA 19/9 - 35,741 Hematology/Oncology and GI consulted. No gastric outlet obstruction currently as per GI - no need for EGD currently, recommends Liver Bx. H/O agrees with Liver Biopsy. Aspirin held in preparation for Liver bx. Patient is currently FULL CODE and wants full work up. Once a final tissue diagnosis has been made, he will reconsider treatment options and code status at that time. 2. HTN - Normally on Azilsartan and Metoprolol. 3. DM 2 - Continue Glargine/Lispro SS. 4. Anemia - likely secondary to chronic disease/metastatic malignancy. No evidence of active bleeding. Stool occult blood requested. H/H Stable. 5. HLD - continue Rosuvastatin. 6. BPH - Continue Tamsulosin DVT Px - Heparin SQ GI Px - Protonix
[2018-08-17] MEDS: SIMETHICONE 80 MG TAB.CHEW (FP) PO SCH (17:14)
[2018-08-17] MEDS ORDERED: traZODone HCL 50 MG TABLET (FP) PO ONE (21:45)
[2018-08-17] MEDS: ROSUVASTATIN CA 20 MG TABLET (FP) PO SCH (22:22)
[2018-08-17] MEDS: INSULIN (LEVEMIR) 100 UNITS/ML UNITS SQ SCH (22:23)
[2018-08-17] MEDS: SODIUM CHLORIDE 1,000 ML IV SCH (22:50)
[2018-08-18] MEDS: HEPARIN NA (PORCINE) 5,000 UNITS/ML 1ML VIAL SQ SCH ×2 (06:31→14:40)
[2018-08-18] MEDS: SIMETHICONE 80 MG TAB.CHEW (FP) PO SCH ×4 (06:32→17:47)
[2018-08-18] MEDS: INSULIN SLIDING SCALE (NOVOLOG) 1 VIAL SQ SCH ×3 (06:32→17:38)
[2018-08-18] MEDS: TAMSULOSIN HCL 0.4 MG CAP PO SCH (11:20)
[2018-08-18] MEDS: LACTOBACILLUS ACIDOPHILUS 1 TABLET PO SCH ×2 (11:20→13:53)
[2018-08-18] MEDS: PANTOPRAZOLE 40 MG TABLET (FP) PO SCH ×2 (11:20→14:02)
[2018-08-18] MEDS: POLYETHYLENE GLYCOL 3350 119 GM BTL PO SCH ×2 (11:20→17:46)
[2018-08-18] MEDS ORDERED: PT OWN MED DRAWER 7, Y5N ONE (11:55)
[2018-08-18] MEDS: TIMOLOL 0.5% OPHTHALMIC SOL 5 ML BOTTLE OU SCH (12:04)
[2018-08-18 13:08] VITALS: BMI 30.7
[2018-08-18] MEDS ORDERED: SODIUM CHLORIDE 500 ML IV STA (14:33)
--- NOTE | 2018-08-18 16:52 | PN ---
Progress Note (short form) - Note Progress Note: Liver biopsy cancelled today because of patient's recent ASA use Patient ate lunch Labs and imaging reviewed Impression is that of likely metastatic pancreatic cancer Have planned for transfer to [facility] for tissue diagnosis and staging via EUS Please send imaging discs and reports with patient
--- NOTE | 2018-08-18 17:20 | DS ---
Physical Exam: SUBJECTIVE: Patient seen and examined. Still has abdominal discomfort. No events overnight. OBJECTIVE: Vital Signs Period Temp Pulse Resp BP Sys/Fay Pulse Ox Last 24 Hr 97.6 F-98.5 F 91-122 20-28 115-143/56-82 96 PHYSICAL EXAM Neuro AAO x 3. Tone/Power normal all 4 extremities. HEENT - Araumatic, Normocephalic. No pharyngeal erythema/exudate Heart - S1, S2, RRR Lungs - clear to auscultation Abdomen - mild tenderness LQs. Soft. Bowel Sounds normal. Extremities - no edema. No calf tenderness LABS Laboratory Results - last 24 hr 08/16/18 08/16/18 08/16/18 06:39 11:46 18:03 POC Glucometer 125 215 209 08/17/18 08/17/18 08/18/18 17:11 22:18 05:51 POC Glucometer 267 204 190 08/18/18 12:11 POC Glucometer 234 HOSPITAL COURSE: Date of Admission:08/15/18 87 year old male with HTN, DM 2, BPH, presented with increasing fatigue, abdominal distension, epigastric fullness, palpitations and sweats. 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 HOSPITAL COURSE 08/16 1. Pancreatic Mass - likely Ca with mets to Liver No clear evidence of pancreatic or biliary obstruction on imaging/chemistry although there is some pancreatic duct dilatation on CT A/P. CEA, CA 19/9 pending. Will consult Hematology/Oncology and GI for recommendations regarding further work up including possible EGD/EUS/Bx. Patient is currently FULL CODE and wants full work up. Once a final tissue diagnosis has been made, he will reconsider treatment options and code status at that time. 2. HTN - Normally on Azilsartan and Metoprolol. Metoprolol continued. 3. DM 2 - Continue Glargine/Lispro SS. 4. Anemia - likely secondary to chronic disease/metastatic malignancy. No evidence of active bleeding. Stool occult blood requested. Will monitor H/H 08/17 1. Pancreatic Mass - likely Ca with mets to Liver No clear evidence of pancreatic or biliary obstruction on imaging/chemistry although there is some pancreatic duct dilatation on CT A/P. CEA wnl, CA 19/9 - 35,741 Hematology/Oncology and GI consulted. No gastric outlet obstruction currently as per GI - no need for EGD currently, recommends Liver Bx. H/O agrees with Liver Biopsy. Aspirin held in preparation for Liver bx. Patient is currently FULL CODE and wants full work up. Once a final tissue diagnosis has been made, he will reconsider treatment options and code status at that time. GI:Newly diagnosed metastatic pancreatic neoplasm, likely adenocarcinoma, with liver metastases. Possible spinal mets also - awaiting outside MRI report. In light of age unlikely that patient would benefit from aggressive chemotherapy , but certainly may be beneficial palliative interventions. Discussed with patient's family the utility of confirming diagnosis with biopsy. On the balance , in light of the ease with which tissue can be obtained - very accessible large liver lesion noted - believe that tissue biopsy should be pursued, which may reveal pathology other than expected adenocarcinoma, possible more amenable to treatment. Tumor markers pending. Need to review MRI spine - to determine if a candidate for palliative RTX. Review of CT spine reveals no major anatomical aberration/fracture etc. GI following - no clear evidence of gastric outlet obstruction but not entirely ruled out - needs to be monitored clinically. 2. HTN - Normally on Azilsartan and Metoprolol. 3. DM 2 - Continue Glargine/Lispro SS. 4. Anemia - likely secondary to chronic disease/metastatic malignancy. No evidence of active bleeding. Stool occult blood requested. H/H Stable. 5. HLD - continue Rosuvastatin. 6. BPH - Continue Tamsulosin 08/18 1. Pancreatic Mass - likely Ca with mets to Liver -Hematology/Oncology and GI consulted. -H/O agrees with Liver Biopsy. -Cannot due liver biopsy due to Aspirin use. Aspirin Held. -GI (Dr. Montemayor) spoke with Dr. Malloy in [facility] who is now aware of the case. Patient will need to be transferred to [facility] for Endoscopic Ultrasound. -Patient is currently full code and wants full work up. Once a final tissue diagnosis has been made, he will reconsider treatment options and code status at that time. GI: Liver biopsy cancelled today because of patient's recent ASA use Patient ate lunch Labs and imaging reviewed Impression is that of likely metastatic pancreatic cancer Have planned for transfer to [facility] for tissue diagnosis and staging via EUS 2. HTN - Metoprolol. 3. DM 2 - Continue Glargine/Lispro SS. 4. Anemia - likely secondary to chronic disease/metastatic malignancy. No evidence of active bleeding. Stool occult blood requested. H/H Stable. 5. HLD - continue Rosuvastatin. 6. BPH - Continue Tamsulosin DVT Px - Heparin SQ GI Px - Protonix DISPO: PENDING TRANSFER TO [facility] for further workup. Minutes to complete discharge: 35 Discharge Summary Reason For Visit: LESION OF LIVER,TYPE 2 DIABETES MELLITUS Current Active Problems Abdominal pain (Acute) Metastatic cancer (Acute) Condition: Stable - Instructions Diet, Activity, Other Instructions: You will be transferred to [facility] for further workup of Liver mass for possible Biopsy and/or Endoscopic ultrasound,Bx for tissue diagnosis and eval for stenting to prevent outlet obstruction. Referrals: Nick Nur MD [Primary Care Provider] - Disposition: TRANSFER ACUTE CARE/OTHER HOSP - Home Medications Comprehensive Discharge Medication List: Ambulatory Orders Aspirin [ASA -] 81 mg PO DAILY 04/01/16 Celecoxib [CeleBREX -] 200 mg PO DAILY PRN 04/01/16 Insulin Glargine,Hum.rec.anlog [Lantus Solostar PEN -] 35 units SQ HS 04/01/16 Metoprolol Succinate [Toprol Xl] 50 mg PO DAILY 04/01/16 Rosuvastatin Calcium [Crestor] 20 mg PO HS 04/01/16 Tamsulosin HCl [Flomax -] 0.4 mg PO BID 04/01/16 Azilsartan Medoxomil [Edarbi] 40 mg PO DAILY 04/02/16 Insulin (LOG) Aspart [NovoLOG -] 10 units SQ TID 04/02/16 Insulin Lispro Protamin/Lispro [Humalog Mix 50-50 Kwikpen] 35 unit SQ AC Ciprofloxacin [Cipro (Restricted To Id)] 500 mg PO Q12H #36 tablet 04/04/16 Hypromellose 0.5% Opth Soln [Artificial Tears] 1 drop OU Q12H PRN #0 drops 04/04 Lactobacillus Acidophilus [Bacid -] 1 each PO DAILY #30 capsule 04/04/16 Miscellaneous Drug Not In Syst [Outpatient Lab Test] 1 each ASDIR #1 misc 11/15 Timolol 0.5% [Timoptic 0.5%] 1 drop OU DAILY drops 04/04/16 Atorvastatin Ca [Lipitor] 40 mg PO DAILY 08/18/18 Dulaglutide [Trulicity] 1.5 mg IM WEEKLY 08/18/18 Finasteride [Proscar -] 5 mg PO DAILY 08/18/18 Glimepiride [Amaryl -] 4 mg PO BID 08/18/18 Metoprolol Succinate [Toprol Xl] 100 mg PO DAILY 08/18/18 Oxycodone HCl 10 mg PO Q12H PRN 08/18/18 Tramadol HCl [Ultram] 50 mg PO DAILY PRN 08/18/18 This patient is new to me today: Yes Date on this admission: 08/21/18 Emergency Visit: Yes ED Registration Date: 08/15/18 Care time: The patient presented to the Emergency Department on the above date and was hospitalized for further evaluation of their emergent condition. Critical Care patient: No - Discharge Referral Referred to [facility] No
[2018-08-18] MEDS ORDERED: INSULIN (NOVOLOG) ASPART 100 UNITS/ML 10ML VIAL ONE (17:56)
[2018-08-18] MEDS ORDERED: ACETAMINOPHEN 325 MG TABLET (FP) PO ONE (18:45)
--- NOTE | 2018-08-18 19:43 | PN ---
Teaching Attending Note Name of Resident: Alfredo Silva ATTENDING PHYSICIAN STATEMENT I saw and evaluated the patient. I reviewed the resident's note and discussed the case with the resident. I agree with the resident's findings and plan as documented. SUBJECTIVE: Feeling okay. Tired. No abdominal pain/nausea/vomiting. OBJECTIVE: Afebrile, Hemodynamically Stable. Tachycardic up to 116. Last Vital Signs Temp Pulse Resp BP Pulse Ox 98.0 F 97 H 24 H 133/80 96 08/18/18 19:27 08/18/18 19:27 08/18/18 19:27 08/18/18 19:27 08/17/18 21:00 Neuro -AAO x 3. Tone/Power normal all 4 extremities. HEENT - Araumatic, Normocephalic. No pharyngeal erythema/exudate Heart - S1, S2, RRR Lungs - clear to auscultation Abdomen - mild tenderness lower abdomen. Soft. Bowel Sounds normal. Extremities - no edema. No calf tenderness Laboratory Tests 08/15/18 08/15/18 08/15/18 16:20 16:34 16:50 WBC RBC Hgb Hct MCV MCH MCHC RDW Plt Count MPV Absolute Neuts (auto) Neutrophils % Lymphocytes % Monocytes % Eosinophils % Basophils % Nucleated RBC % PT with INR INR PTT (Actin FS) D-Dimer VBG pH 7.36 POC VBG pCO2 49.1 D POC VBG pO2 38.4 D Mixed VBG HCO3 26.7 H Sodium 138 Potassium 4.4 Chloride 103 Carbon Dioxide 25 Anion Gap 10 BUN 23 H Creatinine 0.8 Creat Clearance w eGFR > 60 POC Glucometer [id number] Random Glucose 77 Lactic Acid Calcium 8.6 Phosphorus Magnesium Total Bilirubin 0.7 AST 41 H ALT 19 Alkaline Phosphatase 250 H Creatine Kinase 70 CK-MB (CK-2) 1.5 Troponin I Total Protein 7.1 Albumin 3.0 L Total Amylase Lipase Carcinoembryonic Ag CA 19-9 Antigen Urine Color Urine Appearance Urine pH Ur Specific [place] Urine Protein Urine Glucose (UA) Urine Ketones Urine Blood Urine Nitrite Urine Bilirubin Urine Urobilinogen Ur Leukocyte Esterase Blood Type Antibody Screen 08/15/18 08/15/18 08/15/18 16:50 16:50 17:00 WBC 9.6 RBC 4.91 Hgb 12.7 Hct 39.1 MCV 79.5 L MCH 25.8 MCHC 32.4 RDW 18.8 H Plt Count 210 D MPV 9.3 Absolute Neuts (auto) 6.5 Neutrophils % 67.9 Lymphocytes % 19.2 Monocytes % 10.2 Eosinophils % 2.0 Basophils % 0.7 Nucleated RBC % 0 PT with INR INR PTT (Actin FS) D-Dimer VBG pH POC VBG pCO2 POC VBG pO2 Mixed VBG HCO3 Sodium Potassium Chloride Carbon Dioxide Anion Gap BUN Creatinine Creat Clearance w eGFR POC Glucometer Random Glucose Lactic Acid 1.6 Calcium Phosphorus Magnesium Total Bilirubin AST ALT Alkaline Phosphatase Creatine Kinase CK-MB (CK-2) Troponin I Total Protein Albumin Total Amylase 56 Lipase 154 Carcinoembryonic Ag CA 19-9 Antigen Urine Color Urine Appearance Urine pH Ur Specific [place] Urine Protein Urine Glucose (UA) Urine Ketones Urine Blood Urine Nitrite Urine Bilirubin Urine Urobilinogen Ur Leukocyte Esterase Blood Type Antibody Screen 08/15/18 08/15/18 08/15/18 17:00 17:00 17:00 WBC RBC Hgb Hct MCV MCH MCHC RDW Plt Count MPV Absolute Neuts (auto) Neutrophils % Lymphocytes % Monocytes % Eosinophils % Basophils % Nucleated RBC % PT with INR Cancelled INR Cancelled PTT (Actin FS) Cancelled D-Dimer VBG pH POC VBG pCO2 POC VBG pO2 Mixed VBG HCO3 Sodium Potassium Chloride Carbon Dioxide Anion Gap BUN Creatinine Creat Clearance w eGFR POC Glucometer Random Glucose Lactic Acid Calcium Phosphorus Magnesium Total Bilirubin AST ALT Alkaline Phosphatase Creatine Kinase CK-MB (CK-2) Troponin I < 0.02 Total Protein Albumin Total Amylase Lipase Carcinoembryonic Ag CA 19-9 Antigen Urine Color Urine Appearance Urine pH Ur Specific [place] Urine Protein Urine Glucose (UA) Urine Ketones Urine Blood Urine Nitrite Urine Bilirubin Urine Urobilinogen Ur Leukocyte Esterase Blood Type A POSITIVE Antibody Screen Negative 08/15/18 08/15/18 08/15/18 17:38 17:38 19:15 WBC RBC Hgb Hct MCV MCH MCHC RDW Plt Count MPV Absolute Neuts (auto) Neutrophils % Lymphocytes % Monocytes % Eosinophils % Basophils % Nucleated RBC % PT with INR 13.30 H INR 1.13 H PTT (Actin FS) 31.1 D-Dimer 2681 H VBG pH POC VBG pCO2 POC VBG pO2 Mixed VBG HCO3 Sodium Potassium Chloride Carbon Dioxide Anion Gap BUN Creatinine Creat Clearance w eGFR POC Glucometer Random Glucose Lactic Acid Calcium Phosphorus Magnesium Total Bilirubin AST ALT Alkaline Phosphatase Creatine Kinase CK-MB (CK-2) Troponin I Total Protein Albumin Total Amylase Lipase Carcinoembryonic Ag CA 19-9 Antigen Urine Color Yellow Urine Appearance Clear Urine pH 5.0 Ur Specific [place] 1.020 Urine Protein Negative Urine Glucose (UA) Negative Urine Ketones Negative Urine Blood Negative Urine Nitrite Negative Urine Bilirubin Negative Urine Urobilinogen 4.0 e.u/dl Ur Leukocyte Esterase Negative Blood Type Antibody Screen 08/15/18 08/15/18 08/15/18 22:02 22:02 22:02 WBC RBC Hgb Hct MCV MCH MCHC RDW Plt Count MPV Absolute Neuts (auto) Neutrophils % Lymphocytes % Monocytes % Eosinophils % Basophils % Nucleated RBC % PT with INR INR PTT (Actin FS) D-Dimer VBG pH POC VBG pCO2 POC VBG pO2 Mixed VBG HCO3 Sodium Potassium Chloride Carbon Dioxide Anion Gap BUN Creatinine Creat Clearance w eGFR POC Glucometer Random Glucose Lactic Acid Calcium Phosphorus Magnesium Total Bilirubin AST ALT Alkaline Phosphatase Creatine Kinase CK-MB (CK-2) Troponin I < 0.02 Total Protein Albumin Total Amylase Lipase Carcinoembryonic Ag 1.9 CA 19-9 Antigen 47436 H Urine Color Urine Appearance Urine pH Ur Specific [place] Urine Protein Urine Glucose (UA) Urine Ketones Urine Blood Urine Nitrite Urine Bilirubin Urine Urobilinogen Ur Leukocyte Esterase Blood Type Antibody Screen 08/16/18 08/16/18 08/16/18 06:39 07:00 07:00 WBC 8.9 RBC 4.41 Hgb 10.9 L Hct 35.6 MCV 80.6 MCH 24.6 L MCHC 30.5 L RDW 18.8 H Plt Count 187 MPV 9.2 Absolute Neuts (auto) 6.1 Neutrophils % 68.4 Lymphocytes % 19.0 Monocytes % 9.6 Eosinophils % 2.4 Basophils % 0.6 Nucleated RBC % 0 PT with INR INR PTT (Actin FS) D-Dimer VBG pH POC VBG pCO2 POC VBG pO2 Mixed VBG HCO3 Sodium 137 Potassium 4.4 Chloride 102 Carbon Dioxide 27 Anion Gap 8 BUN 17 Creatinine 0.7 Creat Clearance w eGFR > 60 POC Glucometer 125 Random Glucose 124 H Lactic Acid Calcium 7.9 L Phosphorus 3.8 Magnesium 2.0 Total Bilirubin 0.7 AST 38 H ALT 15 Alkaline Phosphatase 207 H Creatine Kinase CK-MB (CK-2) Troponin I Total Protein 5.9 L Albumin 2.4 L Total Amylase Lipase Carcinoembryonic Ag CA 19-9 Antigen Urine Color Urine Appearance Urine pH Ur Specific [place] Urine Protein Urine Glucose (UA) Urine Ketones Urine Blood Urine Nitrite Urine Bilirubin Urine Urobilinogen Ur Leukocyte Esterase Blood Type Antibody Screen 08/16/18 08/16/18 08/16/18 11:46 18:03 22:28 WBC RBC Hgb Hct MCV MCH MCHC RDW Plt Count MPV Absolute Neuts (auto) Neutrophils % Lymphocytes % Monocytes % Eosinophils % Basophils % Nucleated RBC % PT with INR INR PTT (Actin FS) D-Dimer VBG pH POC VBG pCO2 POC VBG pO2 Mixed VBG HCO3 Sodium Potassium Chloride Carbon Dioxide Anion Gap BUN Creatinine Creat Clearance w eGFR POC Glucometer 215 209 199 Random Glucose Lactic Acid Calcium Phosphorus Magnesium Total Bilirubin AST ALT Alkaline Phosphatase Creatine Kinase CK-MB (CK-2) Troponin I Total Protein Albumin Total Amylase Lipase Carcinoembryonic Ag CA 19-9 Antigen Urine Color Urine Appearance Urine pH Ur Specific [place] Urine Protein Urine Glucose (UA) Urine Ketones Urine Blood Urine Nitrite Urine Bilirubin Urine Urobilinogen Ur Leukocyte Esterase Blood Type Antibody Screen 08/17/18 08/17/18 08/17/18 05:31 06:00 12:12 WBC 8.5 RBC 4.53 Hgb 11.0 L Hct 36.3 MCV 80.0 MCH 24.3 L MCHC 30.4 L RDW 18.6 H Plt Count 197 MPV 9.0 Absolute Neuts (auto) Neutrophils % Lymphocytes % Monocytes % Eosinophils % Basophils % Nucleated RBC % PT with INR INR PTT (Actin FS) D-Dimer VBG pH POC VBG pCO2 POC VBG pO2 Mixed VBG HCO3 Sodium Potassium Chloride Carbon Dioxide Anion Gap BUN Creatinine Creat Clearance w eGFR POC Glucometer 184 250 Random Glucose Lactic Acid Calcium Phosphorus Magnesium Total Bilirubin AST ALT Alkaline Phosphatase Creatine Kinase CK-MB (CK-2) Troponin I Total Protein Albumin Total Amylase Lipase Carcinoembryonic Ag CA 19-9 Antigen Urine Color Urine Appearance Urine pH Ur Specific [place] Urine Protein Urine Glucose (UA) Urine Ketones Urine Blood Urine Nitrite Urine Bilirubin Urine Urobilinogen Ur Leukocyte Esterase Blood Type Antibody Screen 08/17/18 08/17/18 08/18/18 17:11 22:18 05:51 WBC RBC Hgb Hct MCV MCH MCHC RDW Plt Count MPV Absolute Neuts (auto) Neutrophils % Lymphocytes % Monocytes % Eosinophils % Basophils % Nucleated RBC % PT with INR INR PTT (Actin FS) D-Dimer VBG pH POC VBG pCO2 POC VBG pO2 Mixed VBG HCO3 Sodium Potassium Chloride Carbon Dioxide Anion Gap BUN Creatinine Creat Clearance w eGFR POC Glucometer 267 204 190 Random Glucose Lactic Acid Calcium Phosphorus Magnesium Total Bilirubin AST ALT Alkaline Phosphatase Creatine Kinase CK-MB (CK-2) Troponin I Total Protein Albumin Total Amylase Lipase Carcinoembryonic Ag CA 19-9 Antigen Urine Color Urine Appearance Urine pH Ur Specific [place] Urine Protein Urine Glucose (UA) Urine Ketones Urine Blood Urine Nitrite Urine Bilirubin Urine Urobilinogen Ur Leukocyte Esterase Blood Type Antibody Screen 08/18/18 08/18/18 12:11 17:36 WBC RBC Hgb Hct MCV MCH MCHC RDW Plt Count MPV Absolute Neuts (auto) Neutrophils % Lymphocytes % Monocytes % Eosinophils % Basophils % Nucleated RBC % PT with INR INR PTT (Actin FS) D-Dimer VBG pH POC VBG pCO2 POC VBG pO2 Mixed VBG HCO3 Sodium Potassium Chloride Carbon Dioxide Anion Gap BUN Creatinine Creat Clearance w eGFR POC Glucometer 234 289 Random Glucose Lactic Acid Calcium Phosphorus Magnesium Total Bilirubin AST ALT Alkaline Phosphatase Creatine Kinase CK-MB (CK-2) Troponin I Total Protein Albumin Total Amylase Lipase Carcinoembryonic Ag CA 19-9 Antigen Urine Color Urine Appearance Urine pH Ur Specific [place] Urine Protein Urine Glucose (UA) Urine Ketones Urine Blood Urine Nitrite Urine Bilirubin Urine Urobilinogen Ur Leukocyte Esterase Blood Type Antibody Screen Current Medications Generic Name Dose Route Start Last Admin Trade Name Freq PRN Reason Stop Dose Admin Docusate Sodium 100 mg 08/16/18 17:44 08/17/18 09:29 Colace - PO 100 mg BID PRN Administration CONSTIPATION Heparin Sodium (Porcine) 5,000 unit 08/16/18 22:00 08/18/18 14:40 Heparin - SQ 5,000 unit TID TJ Administration Sodium Chloride 1,000 mls @ 75 mls/hr 08/15/18 22:45 08/17/18 22:50 Normal Saline - IV 75 mls/hr ASDIR TJ Administration Insulin Aspart 1 vial 08/16/18 07:00 08/18/18 17:38 Novolog Vial Sliding Scale - SQ 4 units ACHS TJ Administration Protocol Insulin Detemir 10 units 08/16/18 22:00 08/17/18 22:23 Levemir Vial SQ 10 units HS TJ Administration Lactobacillus Acidophilus 1 tab 08/17/18 14:30 08/18/18 13:53 Bacid - PO 1 tab DAILY TJ Administration Metoprolol Succinate 50 mg 08/16/18 10:00 08/18/18 12:04 Toprol Xl - PO 50 mg DAILY TJ Administration Non-Formulary Medication 40 mg 08/16/18 10:00 Azilsartan Medoxomil [Edarbi] PO DAILY TJ Pantoprazole Sodium 40 mg 08/17/18 10:00 08/18/18 14:02 Protonix - PO 40 mg DAILY TJ Administration Polyethylene Glycol 17 gm 08/16/18 17:45 Miralax (For Daily Use) - PO DAILY PRN CONSTIPATION Polyethylene Glycol 17 gm 08/17/18 10:00 08/18/18 17:46 Miralax (For Daily Use) - PO 17 gm DAILY TJ Administration Rosuvastatin Calcium 20 mg 08/16/18 22:00 08/17/18 22:22 Crestor - PO 20 mg HS TJ Administration Simethicone 80 mg 08/17/18 18:00 08/18/18 17:47 Mylicon - PO 80 mg Q6HPO TJ Administration Tamsulosin HCl 0.4 mg 08/16/18 08:30 08/18/18 11:20 Flomax - PO Not Given BID@0830,2200 TJ Timolol Maleate 1 drop 08/16/18 10:00 08/18/18 12:04 Timoptic 0.5% OU 1 drop DAILY TJ Administration ASSESSMENT AND PLAN: 87 year old male with HTN, DM 2, BPH, presented with increasing fatigue, abdominal distension, epigastric fullness, palpitations and sweats. 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 He reportedly had a recent out-patient MRI showing possible lesion to L3/4. 1. Pancreatic Mass - likely Ca with mets to Liver No clear evidence of pancreatic or biliary obstruction on imaging/chemistry although there is some pancreatic duct dilatation on CT A/P. CEA wnl, CA 19/9 - 35,741 Hematology/Oncology and GI consulted - both initially suggested Liver Bx for tissue diagnosis. However patient has been on aspirin, stopped only 08/16. No overt gastric outlet obstruction currently as per GI - Discussions held with secure software assessor Dr. Gallardo who discussed the case with Dr. Malloy (advanced endoscopy) at [facility] who recommended EGD with possible EUS +/- Bx for tissue diagnosis and eval for stenting to prevent outlet obstruction. Patient is currently FULL CODE and wants full work up. Once a final tissue diagnosis has been made, he will reconsider treatment options and code status at that time. Given his current clinical picture, he would benefit from transfer to tertiary [facility] where advanced endoscopic diagnostic and therapeutic procedures could be offered. Discussed with family members and patient's PCP who is also his son-in-law and HCP - all are in agreement. 2. HTN - Normally on Azilsartan and Metoprolol - continue. 3. DM 2 - Continue Levemir 10 qhs/Lispro SS. 4. Anemia - likely secondary to chronic disease/metastatic malignancy. No evidence of active bleeding. H/H Stable. 5. HLD - continue Rosuvastatin. 6. BPH - Continue Tamsulosin DVT Px - Heparin SQ GI Px - Protonix Medically stable for transfer to [facility] once bed becomes available.
[2018-08-18 21:45] VITALS: BP 136/64; PULSE 90; TEMP 98.1
== END 2018-08-18 22:03 | disposition short-term general hospital (02) | DRG 436 ==
LOC: JER 15:54 → JERBED 19:11 → UNDOADMIN 22:11 → OBSVTOIN 23:29 → J5S 23:31
PROVIDERS: ADMIT Internal Medicine
DX: C25.9 Malignant neoplasm of pancreas, unspecified (principal); C78.7 Secondary malignant neoplasm of liver and intrahepatic bile duct; E11.9 Type 2 diabetes mellitus without complications; K21.9 Gastro-esophageal reflux disease without esophagitis; I25.10 Atherosclerotic heart disease of native coronary artery without angina pectoris; I10 Essential (primary) hypertension; N40.0 Benign prostatic hyperplasia without lower urinary tract symptoms; M54.9 Dorsalgia, unspecified; Z79.4 Long term (current) use of insulin; R00.0 Tachycardia, unspecified; D63.0 Anemia in neoplastic disease; E78.5 Hyperlipidemia, unspecified; K59.00 Constipation, unspecified
CPT/HCPCS: 36415; 71045-TC-FY; 74177-TC; 80053; 81003; 82150; 82378; 82550; 82553; 82803; 82962; 83605; 83690; 83735; 84100; 84484; 85025; 85027; 85379; 85610; 85730; 86301; 86850; 86900; 86901; 87040; 87086; 93005; 93010; 99283-25; G0378; J0131; J1644; J7030

== ENCOUNTER 2018-09-10 14:54 | Emergency (ER) | payer OTHER ==
[2018-09-10] MEDS ORDERED: SODIUM CHLORIDE 1,000 ML IV STA ×2 (14:58→19:51)
--- NOTE | 2018-09-10 14:58 | PDOC ---
Rapid Medical Evaluation Time Seen by Provider: 09/10/18 14:55 Medical Evaluation: Allergies Allergy/AdvReac Type Severity Reaction Status Date / Time No Known Allergies Allergy Verified 08/15/18 16:25 09/10/18 14:56 I have performed a brief in-person evaluation of this patient. The patient presents with a chief complaint of: unable to tolerate PO's. recent dx pancreatic CA with mets->bone, lung, liver Pertinent physical exam findings: tachycardic I have ordered the following: labs, urine, NS, ekg The patient will proceed to the ED for further evaluation. Discharge Disposition - Diagnosis Vomiting - Referrals - Patient Instructions - Post Discharge Activity
[2018-09-10 15:00] VITALS: BMI 29.1
--- NOTE | 2018-09-10 15:54 | PDOC ---
History of Present Illness - General Stated Complaint: VOMITING/DEHYDRATION Time Seen by Provider: 09/10/18 14:55 - History of Present Illness Initial Comments: 09/10/18 18:00 The patient is an 87 year old male with a history of CAD, HTN, HLD, DM, Pancreatic Cancer with Mets who presents for evaluation of nausea, vomiting, and abdominal pain. The patient is accompanied by family who assists in providing the history. They note that the patient has been experiencing persistent bilious vomiting over the past 1 week with worsening abdominal pain. The patient has been unable to tolerate anything by mouth and has been persistently tachycardic prompting his presentation to the ED for further evaluation. The patient denies fevers, chills, SOB, chest pain, or changes with urination or bowel movements. Past History - Past Medical History Allergies/Adverse Reactions: Allergies Allergy/AdvReac Type Severity Reaction Status Date / Time No Known Allergies Allergy Verified 09/10/18 15:00 Home Medications: Ambulatory Orders Metoprolol Succinate [Toprol Xl] 50 mg PO DAILY 04/01/16 Rosuvastatin Calcium [Crestor] 20 mg PO HS 04/01/16 Tamsulosin HCl [Flomax -] 0.4 mg PO BID 04/01/16 Lactobacillus Acidophilus [Bacid -] 1 each PO DAILY #30 capsule 04/04/16 Timolol 0.5% [Timoptic 0.5%] 1 drop OU DAILY drops 04/04/16 Bisacodyl Suppository [Dulcolax Suppository -] 10 mg [place] PRN PRN supp.rect 08/18 Docusate Sodium [Colace -] 100 mg PO BID PRN capsule 08/18/18 Heparin - 5,000 unit SQ TID vial 08/18/18 Insulin Sliding Scale [Novolog Vial Sliding Scale -] 1 vial SQ ACHS units 08/18 Lactobacillus Acidophilus [Bacid -] 1 tab PO DAILY tab 08/18/18 Pantoprazole Sodium [Protonix -] 40 mg PO DAILY tablet.ec 08/18/18 Polyethylene Glycol 3350 [Miralax 119 gm Btl -] 17 gm PO DAILY bottle 08/18/18 Simethicone [Mylicon -] 80 mg PO Q6HPO tab.chew 08/18/18 Cancer: Yes Cardiac Disorders: Yes (CAD) CVA: No COPD: No CHF: No Dementia: No Diabetes: Yes GI Disorders: Yes (Pancreatic Metastatic Ca) Disorders: Yes (BPH) HTN: Yes Hypercholesterolemia: Yes Liver Disease: No Seizures: No Thyroid Disease: No Lung CA: Yes (Metastatic Ca) - Surgical History Lung Surgery: Yes (S/P LT LUNG RESECTION) - Suicide/Smoking/Psychosocial Hx Smoking History: Never smoked Have you smoked in the past 12 months: No Information on smoking cessation initiated: No Hx Alcohol Use: No Drug/Substance Use Hx: No Substance Use Type: None Review of Systems - Review of Systems Comments:: 09/10/18 18:09 Constitutional: Fatigue. No fevers, chills, malaise HEENT: No Rhinorrhea, nasal congestion, visual changes Cardiovascular: No chest pain, syncope, palpitations, lightheadedness Respiratory: No Cough, SOB, Hemoptysis, Gastrointestinal: Abdominal pain, Nausea, Vomiting. No Constipation, Diarrhea, Melena Genitourinary: No Dysuria, Frequency, Urgency, Hesitancy, Hematuria, Flank pain Musculoskeletal: No Myalgia, arthralgia Skin: No rashes, itching, bruising, pallor Neurologic: No Headache, Dizziness, Numbness, Weakness, or Tingling Psychiatric: No Hallucinations. No SI or HI *Physical Exam - Vital Signs Last Vital Signs Temp Pulse Resp BP Pulse Ox 98.7 F 131 H 20 147/85 95 09/10/18 14:54 09/10/18 14:54 09/10/18 14:54 09/10/18 14:54 09/10/18 14:54 - Physical Exam Comments: 09/10/18 18:23 General Appearance: Nourished. In Apparent Distress HEENT: EOMI, ZEINAB. No Pharyngeal Erythema, Tonsillar Exudate, Tonsillar Erythema Neck: No Cervical Lymphadenopathy Respiratory/Chest: Lungs Clear, Normal Breath Sounds. No Crackles, Rales, Rhonchi, Wheezing Cardiovascular: Regular Rhythm, Tachycardic Rate. No Murmur, Gallops, Rubs Gastrointestinal/Abdominal: Normal Bowel Sounds, Distended abdomen with tenderness to palpation and guarding. No Rebound, Musculoskeletal: No CVA Tenderness Extremity: Normal Capillary Refill Integumentary: Normal Color, Dry, Warm Neurologic: Fully Oriented, Alert, Normal Mood/Affect, Normal Response, Moderate Sedation - Procedure Monitoring Vital Signs: Procedure Monitoring Vital Signs Temperature 98.7 F 09/10/18 14:54 Pulse Rate 131 H 09/10/18 14:54 Respiratory Rate 20 09/10/18 14:54 Blood Pressure 147/85 09/10/18 14:54 O2 Sat by Pulse Oximetry (%) 95 09/10/18 14:54 ED Treatment Course - LABORATORY CBC & Chemistry Diagram: 09/10/18 17:50 09/10/18 17:50 Medical Decision Making - Medical Decision Making 09/10/18 18:29 The patient is an 87 year old male with a history of CAD, HTN, HLD, DM, Pancreatic Cancer with Mets who presents for evaluation of nausea, vomiting, and abdominal pain. Differential includes but is not limited to: Obstruction, Dehydration, Infectious, Metabolic Derangement. Given the patient's history and physical exam, we will obtain a cbc, cmp, lipase, troponin, lactate, ekg, CT abdomen/pelvis to evaluate further. We will treat with iv fluids, morphine, zofran and continue to monitor and reassess. The patient will likely require admission for further management. 09/10/18 19:17 CBC demonstrates an elevated wbc to 12. CMP, troponin, lipase, lactate is unremarkable. The patient is pending CT abdomen/pelvis and UA but will likely require admission. The patient was signed out to Dr. Tineo. *DC/Admit/Observation/Transfer Diagnosis at time of Disposition: Gastric outlet obstruction - Discharge Dispostion Disposition: TRANSFER ACUTE CARE/OTHER HOSP Condition at time of disposition: Stable - Referrals Referrals: Nick Nur MD [Primary Care Provider] - - Patient Instructions - Post Discharge Activity
--- NOTE | 2018-09-10 15:59 | PDOC ---
Attending Attestation - Resident Resident Name: Con Zhang - ED Attending Attestation I have performed the following: I have examined & evaluated the patient, The case was reviewed & discussed with the resident, I agree w/resident's findings & plan - [facility] HPI: 09/10/18 18:02 87 yom with PMHx CAD, HTN, HLD, DM, recent dx pancreatic CA with mets -> bone, lung, liver - recently started radiation tx. Presenting with Abdominal pain/distension, nausea and bilious vomiting x 1 week +constipated, +flatus. No fevers. Poor PO intake. 09/10/18 19:33 - Physicial Exam PE: 09/10/18 18:00 Malaised appearing, dehydrated. PERRL, EOMI, dry membranes, pale conjunctiva, anicteric; neck supple. lungs clear, tachycardic, abdomen soft +distended, diffusely tender. RICK x4, no focal neuro deficits. No peripheral edema. pale and cool to touch., - Medical Decision Making 09/10/18 18:00 I, Peace Gonzáles MD, attest that this document has been prepared under my direction and personally reviewed by me in its entirety. I further attest, that it accurately reflects all work, treatment, procedures and medical decision -making performed by me. See HPI for details DDx abdominal pain: Renal colic, biliary colic, metabolic/electrolyte derangements. GERD, PUD, esophageal spasm, pancreatitis, hepatitis, constipation , colitis, gastroenteritis, cholecystitis, UTI, pyelonephritis, ileus, SBO, medication side effect, hernia, appendicitis, diverticulitis, mesenteric ischemia. Vital signs reviewed, +tachycardic likely 2/2 pain/dehydration. Prior notes reviewed, including admissions, discharges and consultations. laboratory results and imaging reviewed, basic labs and lytes wnl, notable for mild leukocytosis of 12k, normal lytes and Cr. ALP elevated but has metastatic disease. EKG sinus tachycardia, no interval abnormalities, narrow QRS, ST and T wave segments and morphology normal. Nonspecific T wave abnormalities ED course: IVF, morphine and zofran. VS improving downtrending tachy CT a/p: high concern for obstruction with metastatic disease and n/v, AP. results pending s/o to Dr Padilla pending results. Dispo: admit for hydration, AP 09/10/18 18:45 09/10/18 19:33 Heart Score/ECG Review - ECG Impressions Normal ECG: No Tachycardia: Sinus Comment:: 09/10/18 18:02 EKG sinus tachycardia, no interval abnormalities, narrow QRS, ST and T wave segments and morphology normal. Nonspecific T wave abnormalities
[2018-09-10] MEDS ORDERED: morphine CARPU-JECT 4 MG/1 ML DISP.SYRIN IVPUSH ONE (16:02)
[2018-09-10] MEDS ORDERED: morphine SULFATE 4 MG/ML VIAL ONE (16:38)
[2018-09-10] MEDS ORDERED: ONDANSETRON 4 MG/2 ML VIAL IVPUSH ONE (16:58)
[2018-09-10] MEDS ORDERED: ONDANSETRON 4 MG/2 ML VIAL ONE (17:02)
[2018-09-10 17:58] LABS: BASO % 0.2 % (0-2.0); EOS % 0.3 % (0-4.5); HEMATOCRIT 34.8 % (35.4-49); HEMOGLOBIN 11.2 GM/dL (11.7-16.9); LYMPH % 6.4 % (8-40); MCHC 32.1 g/dl (32.0-35.9); MEAN CELL VOLUME 81.1 fl (80-96); MEAN PLT VOLUME 9.2 fl (7.5-11.1); MONO % 7.1 % (3.8-10.2); PLATELET COUNT 294 K/MM3 (134-434); RBC 4.29 M/mm3 (4.00-5.60); RDW 19.1 % (11.9-15.9); WHITE BLOOD COUNT 12.4 K/mm3 (4.0-10.0)
[2018-09-10 18:34] LABS: ALK PHOS 216 U/L (45-117); BILIRUBIN,TOTAL 0.9 mg/dL (0.2-1); BLOOD UREA NITROGEN 19 mg/dL (7-18); CALCIUM 8.2 mg/dL (8.5-10.1); CHLORIDE 97 mmol/L (98-107); CO2 21 mmol/L (21-32); CREATININE 0.8 mg/dL (0.55-1.3); GLUCOSE,RANDOM 289 mg/dL (74-106); LIPASE 156 U/L (73-393); SGPT/ALT 14 U/L (13-61); SODIUM 135 mmol/L (136-145); TOT PROT 6.1 g/dl (6.4-8.2)
[2018-09-10 18:35] LABS: ANION GAP 16 MMOL/L (8-16); POTASSIUM 4.9 mmol/L (3.5-5.1); SGOT/AST 40 U/L (15-37)
--- NOTE | 2018-09-10 19:42 | PDOC ---
*Physical Exam - Vital Signs Last Vital Signs Temp Pulse Resp BP Pulse Ox 98.7 F 116 H 20 137/63 95 09/10/18 14:54 09/10/18 17:19 09/10/18 17:19 09/10/18 17:19 09/10/18 17:19 ED Treatment Course - LABORATORY CBC & Chemistry Diagram: 09/10/18 17:50 09/10/18 17:50 - ADDITIONAL ORDERS Additional order review: Laboratory Results 09/10/18 17:50 Sodium 135 L Potassium 4.9 Chloride 97 L Carbon Dioxide 21 Anion Gap 16 BUN 19 H Creatinine 0.8 Creat Clearance w eGFR > 60 Random Glucose 289 H Calcium 8.2 L Total Bilirubin 0.9 AST 40 H ALT 14 Alkaline Phosphatase 216 H Total Protein 6.1 L Albumin 2.0 L Lipase 156 09/10/18 17:50 RBC 4.29 MCV 81.1 MCHC 32.1 RDW 19.1 H MPV 9.2 Neutrophils % 86.0 H D Lymphocytes % 6.4 L D Monocytes % 7.1 Eosinophils % 0.3 D Basophils % 0.2 - RADIOLOGY Radiology Studies Ordered: Category Date Time Status ABDOMEN & PELVIS CT W/O CONTR [CT] Stat CT Scan 09/10/18 19:16 Taken - Medications Given in the ED: ED Medications Discontinued Medications Generic Name Dose Route Start Last Admin Trade Name Freq PRN Reason Stop Dose Admin Sodium Chloride 1,000 mls @ 1,000 mls/hr 09/10/18 14:58 09/10/18 17:01 Normal Saline - IV 09/10/18 15:57 1,000 mls/hr ASDIR STA Administration Morphine Sulfate 4 mg 09/10/18 16:02 09/10/18 17:01 Morphine Injection - IVPUSH 09/10/18 16:03 4 mg ONCE ONE Administration Ondansetron HCl 4 mg 09/10/18 16:58 09/10/18 17:01 Zofran Injection IVPUSH 09/10/18 16:59 4 mg ONCE ONE Administration Medical Decision Making - Medical Decision Making 09/10/18 19:40 Dr. Nur, the patients PCP, requested that imaging be performed w/o contrast 2/ 2 concern of acute kidney injury in his dehydrated state. They understand that imaging may have to be repeated to be able to make a final clinical decision. *DC/Admit/Observation/Transfer Diagnosis at time of Disposition: Vomiting - Referrals Referrals: Nick Nur MD [Primary Care Provider] - - Patient Instructions - Post Discharge Activity
--- NOTE | 2018-09-10 19:46 | PDOC ---
*Physical Exam - Vital Signs Last Vital Signs Temp Pulse Resp BP Pulse Ox 98.7 F 116 H 20 137/63 95 09/10/18 14:54 09/10/18 17:19 09/10/18 17:19 09/10/18 17:19 09/10/18 17:19 ED Treatment Course - LABORATORY CBC & Chemistry Diagram: 09/10/18 17:50 09/10/18 17:50 - ADDITIONAL ORDERS Additional order review: Laboratory Results 09/10/18 17:50 Sodium 135 L Potassium 4.9 Chloride 97 L Carbon Dioxide 21 Anion Gap 16 BUN 19 H Creatinine 0.8 Creat Clearance w eGFR > 60 Random Glucose 289 H Calcium 8.2 L Total Bilirubin 0.9 AST 40 H ALT 14 Alkaline Phosphatase 216 H Total Protein 6.1 L Albumin 2.0 L Lipase 156 09/10/18 17:50 RBC 4.29 MCV 81.1 MCHC 32.1 RDW 19.1 H MPV 9.2 Neutrophils % 86.0 H D Lymphocytes % 6.4 L D Monocytes % 7.1 Eosinophils % 0.3 D Basophils % 0.2 - Medications Given in the ED: ED Medications Discontinued Medications Generic Name Dose Route Start Last Admin Trade Name Freq PRN Reason Stop Dose Admin Sodium Chloride 1,000 mls @ 1,000 mls/hr 09/10/18 14:58 09/10/18 17:01 Normal Saline - IV 09/10/18 15:57 1,000 mls/hr ASDIR STA Administration Morphine Sulfate 4 mg 09/10/18 16:02 09/10/18 17:01 Morphine Injection - IVPUSH 09/10/18 16:03 4 mg ONCE ONE Administration Ondansetron HCl 4 mg 09/10/18 16:58 09/10/18 17:01 Zofran Injection IVPUSH 09/10/18 16:59 4 mg ONCE ONE Administration Medical Decision Making - Medical Decision Making 09/10/18 19:52 Patient is an 87 year old male with a history of CAD, HTN, HLD, DM, Pancreatic Cancer with Mets with nausea, vomiting, and abdominal pain. Vitals notable for HR of 131 initially. Given 1L, HR now 113. Patient has not vomited since just prior to arrival. Given zofran and morphine in ED. Pain controlled. CT scan pending. 09/10/18 20:50 CT shows evidence of gastric outlet obstruction without evidence of SBO, suggests endoscopy. Patient reassessed, is complaining of no pain. Still has not vomited in ED. Holding NG tube for now given lack of symptoms. Will admit for further GI evaluation. 09/10/18 22:20 GI states not comfortable stenting patient, suggests transfer to [facility] given prior ca workup there. Will transfer. Dr Keith accepting. *DC/Admit/Observation/Transfer Diagnosis at time of Disposition: Gastric outlet obstruction - Discharge Dispostion Disposition: TRANSFER ACUTE CARE/OTHER HOSP Condition at time of disposition: Stable - Referrals Referrals: Nick Nur MD [Primary Care Provider] - - Patient Instructions - Post Discharge Activity - Transfer to Acute Care Facility Receiving Facility: [facility] Accepting Physician:: Inna
[2018-09-10 20:33] LABS: URINE APPEARANCE SLCLOUDY; URINE BILIRUBIN NEGATIVE (<2.0 mg/dL); URINE COLOR YELLOW; URINE GLUCOSE (UA) 3+ (NEGATIVE); URINE KETONE 2+ (NEGATIVE); URINE LEUK ESTERASE TRACE (NEGATIVE); URINE NITRITE NEGATIVE (NEGATIVE); URINE PROTEIN 1+ (NEGATIVE)
[2018-09-10 20:35] LABS: EPI CELLS RARE /HPF (FEW); URINE HYALINE CAST 6 /lpf; URINE MUCUS RARE
[2018-09-10 22:36] VITALS: BP 140/64; PULSE 115; TEMP 98.1
--- NOTE | 2018-09-11 12:47 | EKG ---
Test Reason : Blood Pressure : / mmHG Vent. Rate : 128 BPM Atrial Rate : 128 BPM P-R Int : 146 ms QRS Dur : 090 ms QT Int : 328 ms P-R-T Axes : 045 -61 067 degrees QTc Int : 478 ms SINUS TACHYCARDIA POSSIBLE LEFT ATRIAL ENLARGEMENT LEFT ANTERIOR FASCICULAR BLOCK SEPTAL INFARCT (CITED ON OR BEFORE 01-APR-2016) POSSIBLE LATERAL INFARCT , AGE UNDETERMINED ABNORMAL ECG WHEN COMPARED WITH ECG OF 15-AUG-2018 16:20, PREMATURE VENTRICULAR COMPLEXES ARE NO LONGER PRESENT ST NO LONGER ELEVATED IN INFERIOR LEADS NON-SPECIFIC CHANGE IN ST SEGMENT IN LATERAL LEADS Confirmed by CONNOR RENAE, NATIVIDAD ([id number]) on 09/11/2018 12:46:57 PM Referred By: Confirmed By:NATIVIDAD RYAN MD
== END 2018-09-10 23:05 | disposition short-term general hospital (02) ==
LOC: JER 14:54
PROC: 3E0337Z Introduction of Electrolytic and Water Balance Substance into Peripheral Vein, Percutaneous Approach (ICD-10-PCS; principal; 2018-09-10)
PROC: 3E033GC Introduction of Other Therapeutic Substance into Peripheral Vein, Percutaneous Approach (ICD-10-PCS; 2018-09-10)
PROC: 3E033NZ Introduction of Analgesics, Hypnotics, Sedatives into Peripheral Vein, Percutaneous Approach (ICD-10-PCS; 2018-09-10)
DX: K31.1 Adult hypertrophic pyloric stenosis (principal); I10 Essential (primary) hypertension; E78.5 Hyperlipidemia, unspecified; E11.9 Type 2 diabetes mellitus without complications; C25.9 Malignant neoplasm of pancreas, unspecified; C78.7 Secondary malignant neoplasm of liver and intrahepatic bile duct; C78.00 Secondary malignant neoplasm of unspecified lung; C79.51 Secondary malignant neoplasm of bone
CPT/HCPCS: 36415; 74176-TC; 80053; 81003; 81015; 83605; 83690; 84484; 85025; 93005; 93010; 99285-25; J7030